=== PATIENT | male | born 1945 | race African-American/Black ===

== ENCOUNTER 2018-12-12 17:35 | Inpatient (IN) | payer MEDICARE, MEDICAID ==
[2018-12-12] VITALS (7 sets, daily range): BP systolic 99–164; BP diastolic 67–106
[~2018-12-12] VITALS: Ht 170.2 cm; Wt 85.7 kg
[2018-12-12] MEDS ORDERED: IPRATROPIUM BROMIDE (0.02%) 0.5MG/2.5ML NEB HHN STA (17:43)
[2018-12-12] MEDS ORDERED: ALBUTEROL (0.083%) 2.5MG/3ML NEB HHN STA (17:43)
[2018-12-12] MEDS ORDERED: METHYLPREDNISOLONE SOD SUCC 125 MG/2 ML VIAL IV STA (17:43)
[2018-12-12] MEDS ORDERED: MAGNESIUM 2 G PREMIX 50 ML IV ONE (17:45)
[2018-12-12] MEDS ORDERED: SODIUM CHLORIDE 0.9% 1,000 ML IV ONE (18:45)
[2018-12-12 18:51] LABS: BASOPHILS % 0.4 % (0.0-2.0); EOSINOPHILS % 0.1 % (0.0-5.0); HEMOGLOBIN. 15.3 g/dL (14.0-18.0); LYMPHOCYTES % 23.4 % (20.0-50.0); MEAN CORPUSCULAR HEMOGLOBIN 31.7 pg (28.0-32.0); MEAN CORPUSCULAR VOLUME 95.3 fL (80.0-94.0); MEAN PLATELET VOLUME 8.9 fl (7.4-10.4); NEUTROPHILS % 70.1 % (40.0-76.0); PLATELET 189 x1000/uL (130-400); RED BLOOD CELL COUNT 4.82 mill/uL (4.7-6.1); RED CELL DISTRIBUTION WIDTH 12.8 % (11.6-14.6)
[2018-12-12 18:56] LABS: CHLORIDE 97 mEq/L (98-107)
[2018-12-12] MEDS ORDERED: LORAZEPAM 2MG/ML CPJ IV ONE ×2 (19:00→19:30)
[2018-12-12] MEDS ORDERED: SUCCINYLCHOLINE CHLORIDE 200MG/10ML IV ONE (19:00)
[2018-12-12] MEDS ORDERED: ETOMIDATE 2MG/ML 10ML VIAL IV ONE (19:00)
[2018-12-12] MEDS ORDERED: KETAMINE HCL 50 MG/ML 10ML IV ONE (19:00)
[2018-12-12] MEDS ORDERED: MIDAZOLAM HCL 2 MG/2 ML VIAL IV ONE (19:15)
[2018-12-12] MEDS ORDERED: MIDAZOLAM HCL 50 MG in DEXTROSE 5% WATER 40 ML IV ONE ×2 (19:15→19:30)
[2018-12-12 20:02] LABS: BG BASE EXCESS -1.2 mmol/L (-2.0-2.0); BG CARBOXYHEMOGLOBIN 0.2 % (0.5-1.5); BG DEOXYHEMOGLOBIN 0.3 % (0.0-5.0); BG FRACTION INSPIRED OXYGEN 100; BG HCO3 ACT 29.4 mmol/L (22.0-26.0); BG METHEMOGLOBIN 0.6 % (0.0-1.5); BG OXYGEN SATURATION 99.7 % (92.0-98.5); BG OXYHEMOGLOBIN 98.9 % (94.0-97.0); BG PCO2 79.4 mmHg (35.0-45.0); BG PH 7.186 (7.350-7.450); BG PO2 538.6 mmHg (75.0-100.0); BG SAMPLE SITE RIGHT RADIAL; BG TIDAL VOLUME(mL) 500 mL; BG TOTAL HEMOGLOBIN 14.3 g/dL (12.0-18.0); BG VENT MODE VENT - A/C; BG VENT RATE 12 set
[2018-12-13] VITALS (49 sets, daily range): BP systolic 83–195; BP diastolic 57–141
[2018-12-13] MEDS ORDERED: LEVOFLOXACIN 500MG PREMIX 100 ML IV SCH (00:15)
[2018-12-13] MEDS ORDERED: IPRATROPIUM/ALBUTEROL 0.5-3(2.5)MG/3ML NEB INH PRN (00:15)
[2018-12-13] MEDS ORDERED: ACETAMINOPHEN 650MG SUPP PR PRN (00:15)
[2018-12-13] MEDS ORDERED: ONDANSETRON HCL 4MG/2ML INJ IV PRN (00:15)
[2018-12-13] MEDS: SODIUM CHLORIDE 0.9% 1,000 ML IV SCH ×2 (00:37→12:10)
[2018-12-13] MEDS: MIDAZOLAM HCL 50 MG in DEXTROSE 5% WATER 40 ML IV PRN ×2 (00:38→07:29)
[2018-12-13] MEDS ORDERED: MAGNESIUM 2 G PREMIX 50 ML IV NR (01:00)
[2018-12-13] MEDS ORDERED: POTASSIUM CHLORIDE INJ 40 MEQ in DEXT 5% WATER 250 ML IV NR (01:00)
[2018-12-13] MEDS: FENTANYL CITRATE/PF 500 MCG in SODIUM CHLORIDE 0.9% 40 ML IV PRN ×3 (02:12→17:04)
[2018-12-13] MEDS: LEVOFLOXACIN 500MG PREMIX 100 ML IV SCH (04:13)
[2018-12-13] MEDS: IPRATROPIUM/ALBUTEROL 0.5-3(2.5)MG/3ML NEB HHN SCH ×5 (04:43→20:12)
[2018-12-13 05:34] LABS: CHLORIDE 103 mEq/L (98-107)
[2018-12-13] MEDS ORDERED: METHYLPREDNISOLONE SOD SUCC 125 MG/2 ML VIAL IV SCH (06:00)
[2018-12-13 08:32] LABS: BG BASE EXCESS 0.4 mmol/L (-2.0-2.0); BG CARBOXYHEMOGLOBIN 0.6 % (0.5-1.5); BG DEOXYHEMOGLOBIN 1.2 % (0.0-5.0); BG FRACTION INSPIRED OXYGEN 40; BG HCO3 ACT 27.8 mmol/L (22.0-26.0); BG METHEMOGLOBIN 0.4 % (0.0-1.5); BG OXYGEN SATURATION 98.8 % (92.0-98.5); BG OXYHEMOGLOBIN 97.8 % (94.0-97.0); BG PCO2 56.2 mmHg (35.0-45.0); BG PH 7.312 (7.350-7.450); BG PO2 152.1 mmHg (75.0-100.0); BG SAMPLE SITE RIGHT RADIAL; BG TIDAL VOLUME(mL) 500 mL; BG TOTAL HEMOGLOBIN 14.3 g/dL (12.0-18.0); BG VENT MODE VENT - A/C; BG VENT RATE 14 set
[2018-12-13] MEDS: FAMOTIDINE 20MG/2ML VIAL IV SCH ×2 (09:19→21:06)
[2018-12-13] MEDS: ENOXAPARIN 40MG/0.4ML SYR SUBCUT SCH (09:19)
[2018-12-13] MEDS ORDERED: DEXTROSE 50% WATER 50ML SYRINGE IV PRN (10:30)
[2018-12-13] MEDS: INSULIN LISPRO 100 UNITS/ML SUBCUT SCH ×3 (11:00→23:55)
[2018-12-13] MEDS: LORAZEPAM 2MG/ML CPJ IV PRN (11:35)
[2018-12-13] MEDS: BLOOD SUGAR DIAGNOSTIC STRIP TEST SCH ×3 (11:48→23:53)
[2018-12-13] MEDS: PROPOFOL 10MG/ML 100ML 100 ML IV PRN ×3 (12:09→23:58)
[2018-12-13] MEDS: METHYLPREDNISOLONE SOD SUCC 40 MG/ML VIAL IV SCH ×2 (15:05→21:06)
[2018-12-14] VITALS (60 sets, daily range): BP systolic 77–151; BP diastolic 59–106
[2018-12-14] MEDS: IPRATROPIUM/ALBUTEROL 0.5-3(2.5)MG/3ML NEB HHN SCH ×6 (00:06→20:52)
[2018-12-14 01:09] LABS: CLARITY URINE TURBID (CLEAR); KETONES URINE 2+ (NEGATIVE); LEUKOCYTE ESTERASE URINE 3+ (NEGATIVE); NITRITE URINE POSITIVE (NEGATIVE); OCCULT BLOOD URINE 3+ (NEGATIVE); PROTEIN URINE 2+ (NEGATIVE); SPECIFIC GRAVITY URINE 1.026 (1.005-1.030)
[2018-12-14 01:21] LABS: COLOR URINE BLOODY (YELLOW)
[2018-12-14 01:45] LABS: *BARBITURATES SCREEN URINE NEGATIVE (NEGATIVE)
[2018-12-14 01:46] LABS: *AMPHETAMINES SCREEN URINE NEGATIVE (NEGATIVE); *BENZODIAZEPINES SCREEN URINE PRESUMTIVE POSITIVE (NEGATIVE); *COCAINE SCREEN URINE NEGATIVE (NEGATIVE); METHADONE URINE SCREEN NEGATIVE (NEGATIVE); OPIATES URINE SCREEN PRESUMTIVE POSITIVE (NEGATIVE); PHENCYCLIDINE URINE SCREEN NEGATIVE (NEGATIVE)
[2018-12-14 01:47] LABS: CANNABINOID URINE SCREEN PRESUMTIVE POSITIVE (NEGATIVE)
[2018-12-14] MEDS: FENTANYL CITRATE/PF 500 MCG in SODIUM CHLORIDE 0.9% 40 ML IV PRN ×2 (03:13→20:59)
[2018-12-14] MEDS: LEVOFLOXACIN 500MG PREMIX 100 ML IV SCH (04:48)
[2018-12-14] MEDS: SODIUM CHLORIDE 0.9% 1,000 ML IV SCH ×2 (04:53→17:46)
[2018-12-14] MEDS: INSULIN LISPRO 100 UNITS/ML SUBCUT SCH ×4 (05:00→23:00)
[2018-12-14 05:34] LABS: BASOPHILS % 0.2 % (0.0-2.0); HEMATOCRIT. 38.8 % (42.0-52.0); HEMOGLOBIN. 12.9 g/dL (14.0-18.0); LYMPHOCYTES % 8.2 % (20.0-50.0); MEAN CORPUSCULAR HEMOGLOBIN 31.9 pg (28.0-32.0); MEAN CORPUSCULAR VOLUME 96.1 fL (80.0-94.0); MEAN PLATELET VOLUME 9.2 fl (7.4-10.4); MONOCYTES % 5.7 % (2.0-8.0); NEUTROPHILS % 85.9 % (40.0-76.0); PLATELET 140 x1000/uL (130-400); RED BLOOD CELL COUNT 4.04 mill/uL (4.7-6.1); RED CELL DISTRIBUTION WIDTH 12.9 % (11.6-14.6)
[2018-12-14] MEDS: BLOOD SUGAR DIAGNOSTIC STRIP TEST SCH ×4 (05:36→23:00)
[2018-12-14] MEDS: METHYLPREDNISOLONE SOD SUCC 40 MG/ML VIAL IV SCH ×3 (05:47→21:36)
[2018-12-14 05:50] LABS: CHLORIDE 106 mEq/L (98-107)
[2018-12-14] MEDS: PROPOFOL 10MG/ML 100ML 100 ML IV PRN ×3 (06:00→17:42)
[2018-12-14 07:53] LABS: BG BASE EXCESS 0.9 mmol/L (-2.0-2.0); BG CARBOXYHEMOGLOBIN 0.5 % (0.5-1.5); BG DEOXYHEMOGLOBIN 3.8 % (0.0-5.0); BG FRACTION INSPIRED OXYGEN 30; BG HCO3 ACT 28.1 mmol/L (22.0-26.0); BG METHEMOGLOBIN 0.2 % (0.0-1.5); BG OXYGEN SATURATION 96.2 % (92.0-98.5); BG OXYHEMOGLOBIN 95.5 % (94.0-97.0); BG PCO2 56.5 mmHg (35.0-45.0); BG PH 7.315 (7.350-7.450); BG PO2 90.1 mmHg (75.0-100.0); BG SAMPLE SITE RIGHT RADIAL; BG TIDAL VOLUME(mL) 500 mL; BG TOTAL HEMOGLOBIN 13.3 g/dL (12.0-18.0); BG VENT MODE VENT - A/C; BG VENT RATE 14 set
[2018-12-14] MEDS: ENOXAPARIN 40MG/0.4ML SYR SUBCUT SCH (09:02)
[2018-12-14] MEDS: FAMOTIDINE 20MG/2ML VIAL IV SCH ×2 (09:03→21:36)
[2018-12-14] MEDS ORDERED: PNEUMOCOCCAL 23-VAL P-SAC VAC 0.5 ML IM ONE (16:30)
[2018-12-14] MEDS ORDERED: INFLUENZA VIRUS VACCINE(AFLURIA) 0.5ML SYR IM ONE (16:30)
[2018-12-14 21:44] LABS: BG BASE EXCESS 2.1 mmol/L (-2.0-2.0); BG CARBOXYHEMOGLOBIN 0.4 % (0.5-1.5); BG DEOXYHEMOGLOBIN 1.5 % (0.0-5.0); BG FRACTION INSPIRED OXYGEN 30; BG HCO3 ACT 27.6 mmol/L (22.0-26.0); BG METHEMOGLOBIN 0.2 % (0.0-1.5); BG OXYGEN SATURATION 98.5 % (92.0-98.5); BG OXYHEMOGLOBIN 97.9 % (94.0-97.0); BG PCO2 46.5 mmHg (35.0-45.0); BG PH 7.391 (7.350-7.450); BG PO2 133.4 mmHg (75.0-100.0); BG SAMPLE SITE RIGHT RADIAL; BG TIDAL VOLUME(mL) 500 mL; BG TOTAL HEMOGLOBIN 12.2 g/dL (12.0-18.0); BG VENT MODE VENT - A/C; BG VENT RATE 16 set
[2018-12-15] VITALS (49 sets, daily range): BP systolic 90–150; BP diastolic 51–93
[2018-12-15] MEDS: IPRATROPIUM/ALBUTEROL 0.5-3(2.5)MG/3ML NEB HHN SCH ×6 (00:19→20:10)
[2018-12-15] MEDS: PROPOFOL 10MG/ML 100ML 100 ML IV PRN ×6 (00:22→23:55)
[2018-12-15] MEDS: LEVOFLOXACIN 500MG PREMIX 100 ML IV SCH (04:28)
[2018-12-15] MEDS: BLOOD SUGAR DIAGNOSTIC STRIP TEST SCH ×4 (04:28→23:13)
[2018-12-15] MEDS: METHYLPREDNISOLONE SOD SUCC 40 MG/ML VIAL IV SCH ×3 (05:21→21:09)
[2018-12-15] MEDS: INSULIN LISPRO 100 UNITS/ML SUBCUT SCH ×4 (05:22→23:00)
[2018-12-15] MEDS: FENTANYL CITRATE/PF 500 MCG in SODIUM CHLORIDE 0.9% 40 ML IV PRN ×2 (05:27→20:10)
[2018-12-15 07:01] LABS: BG BASE EXCESS 4.3 mmol/L (-2.0-2.0); BG DEOXYHEMOGLOBIN 3.4 % (0.0-5.0); BG HCO3 ACT 30.7 mmol/L (22.0-26.0); BG OXYGEN SATURATION 96.6 % (92.0-98.5); BG OXYHEMOGLOBIN 95.6 % (94.0-97.0); BG PCO2 53.3 mmHg (35.0-45.0); BG PH 7.378 (7.350-7.450); BG SAMPLE SITE RIGHT RADIAL; BG TIDAL VOLUME(mL) 500 mL; BG TOTAL HEMOGLOBIN 13.4 g/dL (12.0-18.0); BG VENT MODE VENT - A/C; BG VENT RATE 16 set
[2018-12-15] MEDS: ENOXAPARIN 40MG/0.4ML SYR SUBCUT SCH (08:37)
[2018-12-15] MEDS: FAMOTIDINE 20MG/2ML VIAL IV SCH ×2 (08:37→20:21)
[2018-12-15] MEDS: SODIUM CHLORIDE 0.9% 1,000 ML IV SCH ×2 (09:49→20:11)
[2018-12-15] MEDS: THEOPHYLLINE ANHYDROUS 80 MG/15 ML 120ML PO SCH ×2 (14:36→21:09)
[2018-12-15] MEDS: LORAZEPAM 2MG/ML CPJ IV PRN (17:35)
[2018-12-15 18:09] LABS: BG BASE EXCESS 3.5 mmol/L (-2.0-2.0); BG DEOXYHEMOGLOBIN 4.1 % (0.0-5.0); BG METHEMOGLOBIN 0.2 % (0.0-1.5); BG OXYGEN SATURATION 95.9 % (92.0-98.5); BG OXYHEMOGLOBIN 95.7 % (94.0-97.0); BG PCO2 47.4 mmHg (35.0-45.0); BG PH 7.404 (7.350-7.450); BG PO2 85.4 mmHg (75.0-100.0); BG SAMPLE SITE RIGHT BRACHIAL; BG TIDAL VOLUME(mL) 550 mL; BG TOTAL HEMOGLOBIN 12.7 g/dL (12.0-18.0); BG VENT MODE VENT - A/C; BG VENT RATE 16 set
[2018-12-16] VITALS (52 sets, daily range): BP systolic 101–209; BP diastolic 70–124
[2018-12-16] MEDS: IPRATROPIUM/ALBUTEROL 0.5-3(2.5)MG/3ML NEB HHN SCH ×7 (00:18→20:19)
[2018-12-16] MEDS: LEVOFLOXACIN 500MG PREMIX 100 ML IV SCH (03:16)
[2018-12-16] MEDS: METHYLPREDNISOLONE SOD SUCC 40 MG/ML VIAL IV SCH ×3 (05:07→21:19)
[2018-12-16] MEDS: PROPOFOL 10MG/ML 100ML 100 ML IV PRN ×4 (05:08→19:37)
[2018-12-16] MEDS: BLOOD SUGAR DIAGNOSTIC STRIP TEST SCH ×4 (05:20→23:23)
[2018-12-16] MEDS: THEOPHYLLINE ANHYDROUS 80 MG/15 ML 120ML PO SCH ×3 (05:20→21:19)
[2018-12-16] MEDS: INSULIN LISPRO 100 UNITS/ML SUBCUT SCH ×4 (05:25→23:27)
[2018-12-16 05:48] LABS: BASOPHILS % 0.1 % (0.0-2.0); HEMATOCRIT. 34.9 % (42.0-52.0); HEMOGLOBIN. 11.4 g/dL (14.0-18.0); LYMPHOCYTES % 18.1 % (20.0-50.0); MEAN CORPUSCULAR HEMOGLOBIN 31.8 pg (28.0-32.0); MEAN PLATELET VOLUME 9.1 fl (7.4-10.4); NEUTROPHILS % 70.8 % (40.0-76.0); PLATELET 153 x1000/uL (130-400); RED BLOOD CELL COUNT 3.59 mill/uL (4.7-6.1)
[2018-12-16 06:04] LABS: CHLORIDE 111 mEq/L (98-107)
[2018-12-16] MEDS: FAMOTIDINE 20MG/2ML VIAL IV SCH ×2 (08:19→20:55)
[2018-12-16] MEDS: ENOXAPARIN 40MG/0.4ML SYR SUBCUT SCH (08:19)
[2018-12-16] MEDS: SODIUM CHLORIDE 0.9% 1,000 ML IV SCH ×2 (08:20→20:56)
[2018-12-16] MEDS: FENTANYL CITRATE/PF 500 MCG in SODIUM CHLORIDE 0.9% 40 ML IV PRN ×2 (08:23→19:39)
[2018-12-16 08:31] LABS: BG BASE EXCESS 4.8 mmol/L (-2.0-2.0); BG CARBOXYHEMOGLOBIN 0.2 % (0.5-1.5); BG DEOXYHEMOGLOBIN 2.3 % (0.0-5.0); BG FRACTION INSPIRED OXYGEN 30; BG HCO3 ACT 29.9 mmol/L (22.0-26.0); BG METHEMOGLOBIN 0.3 % (0.0-1.5); BG OXYGEN SATURATION 97.7 % (92.0-98.5); BG OXYHEMOGLOBIN 97.2 % (94.0-97.0); BG PCO2 46.3 mmHg (35.0-45.0); BG PH 7.428 (7.350-7.450); BG PO2 102.1 mmHg (75.0-100.0); BG SAMPLE SITE RIGHT RADIAL; BG TIDAL VOLUME(mL) 550 mL; BG TOTAL HEMOGLOBIN 12.1 g/dL (12.0-18.0); BG VENT MODE VENT - A/C; BG VENT RATE 16 set
[2018-12-16] MEDS: LORAZEPAM 2MG/ML CPJ IV PRN (19:33)
[2018-12-17] VITALS (52 sets, daily range): BP systolic 91–193; BP diastolic 67–128
[2018-12-17] MEDS: IPRATROPIUM/ALBUTEROL 0.5-3(2.5)MG/3ML NEB HHN SCH ×6 (00:13→20:11)
[2018-12-17] MEDS: PROPOFOL 10MG/ML 100ML 100 ML IV PRN ×4 (01:24→19:40)
[2018-12-17] MEDS: LEVOFLOXACIN 500MG PREMIX 100 ML IV SCH (03:49)
[2018-12-17] MEDS: THEOPHYLLINE ANHYDROUS 80 MG/15 ML 120ML PO SCH ×3 (05:16→21:15)
[2018-12-17] MEDS: METHYLPREDNISOLONE SOD SUCC 40 MG/ML VIAL IV SCH ×3 (05:16→21:15)
[2018-12-17] MEDS: INSULIN LISPRO 100 UNITS/ML SUBCUT SCH ×4 (05:26→23:00)
[2018-12-17] MEDS: BLOOD SUGAR DIAGNOSTIC STRIP TEST SCH ×4 (05:27→23:29)
[2018-12-17 05:54] LABS: HEMATOCRIT. 38.9 % (42.0-52.0); HEMOGLOBIN. 12.8 g/dL (14.0-18.0); MEAN CORPUSCULAR HEMOGLOBIN 31.6 pg (28.0-32.0); MEAN CORPUSCULAR VOLUME 96.1 fL (80.0-94.0); RED BLOOD CELL COUNT 4.05 mill/uL (4.7-6.1)
[2018-12-17 07:20] LABS: BG BASE EXCESS 6.1 mmol/L (-2.0-2.0); BG CARBOXYHEMOGLOBIN 0.3 % (0.5-1.5); BG DEOXYHEMOGLOBIN 2.4 % (0.0-5.0); BG HCO3 ACT 31.5 mmol/L (22.0-26.0); BG METHEMOGLOBIN 0.3 % (0.0-1.5); BG OXYGEN SATURATION 97.6 % (92.0-98.5); BG PCO2 48.6 mmHg (35.0-45.0); BG PH 7.429 (7.350-7.450); BG PO2 103.9 mmHg (75.0-100.0); BG SAMPLE SITE RIGHT RADIAL; BG TIDAL VOLUME(mL) 550 mL; BG TOTAL HEMOGLOBIN 12.7 g/dL (12.0-18.0); BG VENT MODE VENT - A/C; BG VENT RATE 16 set
[2018-12-17 07:42] LABS: CHLORIDE 110 mEq/L (98-107)
[2018-12-17 08:57] LABS: MEAN PLATELET VOLUME 8.7 fl (7.4-10.4); PLATELET 180 x1000/uL (130-400); PLATELET ESTIMATE NORMAL
[2018-12-17] MEDS: FAMOTIDINE 20MG/2ML VIAL IV SCH ×2 (09:12→21:14)
[2018-12-17] MEDS: ENOXAPARIN 40MG/0.4ML SYR SUBCUT SCH (09:12)
[2018-12-17] MEDS: SODIUM CHLORIDE 0.9% 1,000 ML IV SCH ×2 (10:11→23:29)
[2018-12-17] MEDS: LORAZEPAM 2MG/ML CPJ IV PRN (13:15)
[2018-12-17] MEDS: FENTANYL CITRATE/PF 500 MCG in SODIUM CHLORIDE 0.9% 40 ML IV PRN ×2 (13:55→21:39)
[2018-12-17] MEDS: HYDRALAZINE 20MG/ML VIAL IV PRN (15:51)
[2018-12-18] VITALS (59 sets, daily range): BP systolic 69–191; BP diastolic 38–117
[2018-12-18] MEDS: IPRATROPIUM/ALBUTEROL 0.5-3(2.5)MG/3ML NEB HHN SCH ×6 (00:42→19:59)
[2018-12-18] MEDS: PROPOFOL 10MG/ML 100ML 100 ML IV PRN ×4 (01:01→21:06)
[2018-12-18] MEDS: LEVOFLOXACIN 500MG PREMIX 100 ML IV SCH (03:17)
[2018-12-18] MEDS: INSULIN LISPRO 100 UNITS/ML SUBCUT SCH ×4 (05:00→23:00)
[2018-12-18] MEDS: METHYLPREDNISOLONE SOD SUCC 40 MG/ML VIAL IV SCH ×2 (05:19→21:36)
[2018-12-18] MEDS: THEOPHYLLINE ANHYDROUS 80 MG/15 ML 120ML PO SCH ×2 (05:19→16:23)
[2018-12-18] MEDS: BLOOD SUGAR DIAGNOSTIC STRIP TEST SCH ×4 (05:19→23:00)
[2018-12-18] MEDS: FAMOTIDINE 20MG/2ML VIAL IV SCH ×2 (09:06→21:36)
[2018-12-18] MEDS: ENOXAPARIN 40MG/0.4ML SYR SUBCUT SCH (09:06)
[2018-12-18] MEDS: SODIUM CHLORIDE 0.9% 1,000 ML IV SCH (13:32)
[2018-12-18] MEDS: FENTANYL CITRATE/PF 500 MCG in SODIUM CHLORIDE 0.9% 40 ML IV PRN ×2 (14:50→21:59)
[2018-12-18] MEDS: HYDRALAZINE 20MG/ML VIAL IV PRN (18:33)
[2018-12-18] MEDS: DIPHENHYDRAMINE 50MG/ML VIAL IV PRN (18:34)
[2018-12-18 20:45] LABS: BG BASE EXCESS 8.3 mmol/L (-2.0-2.0); BG CARBOXYHEMOGLOBIN 0.3 % (0.5-1.5); BG DEOXYHEMOGLOBIN 6.8 % (0.0-5.0); BG FRACTION INSPIRED OXYGEN 30; BG HCO3 ACT 34.7 mmol/L (22.0-26.0); BG METHEMOGLOBIN 0.3 % (0.0-1.5); BG OXYGEN SATURATION 93.2 % (92.0-98.5); BG OXYHEMOGLOBIN 92.6 % (94.0-97.0); BG PCO2 54.2 mmHg (35.0-45.0); BG PH 7.424 (7.350-7.450); BG PIP 15 cmH2O; BG PO2 68.6 mmHg (75.0-100.0); BG SAMPLE SITE RIGHT BRACHIAL; BG TIDAL VOLUME(mL) 550 mL; BG TOTAL HEMOGLOBIN 15.7 g/dL (12.0-18.0); BG VENT MODE VENT - A/C; BG VENT RATE 16 set
[2018-12-19] VITALS (96 sets, daily range): BP systolic 78–234; BP diastolic 46–134
[2018-12-19] MEDS: IPRATROPIUM/ALBUTEROL 0.5-3(2.5)MG/3ML NEB HHN SCH ×6 (00:01→20:37)
[2018-12-19] MEDS: PROPOFOL 10MG/ML 100ML 100 ML IV PRN ×3 (03:39→21:24)
[2018-12-19] MEDS: LEVOFLOXACIN 500MG PREMIX 100 ML IV SCH (04:47)
[2018-12-19] MEDS: SODIUM CHLORIDE 0.9% 1,000 ML IV SCH ×2 (04:47→18:25)
[2018-12-19] MEDS: INSULIN LISPRO 100 UNITS/ML SUBCUT SCH ×4 (04:51→23:00)
[2018-12-19] MEDS: BLOOD SUGAR DIAGNOSTIC STRIP TEST SCH ×4 (05:00→23:00)
[2018-12-19] MEDS: FENTANYL CITRATE/PF 500 MCG in SODIUM CHLORIDE 0.9% 40 ML IV PRN ×2 (05:55→21:25)
[2018-12-19 08:05] LABS: BG BASE EXCESS 5.2 mmol/L (-2.0-2.0); BG CARBOXYHEMOGLOBIN 0.6 % (0.5-1.5); BG DEOXYHEMOGLOBIN 2.7 % (0.0-5.0); BG FRACTION INSPIRED OXYGEN 30; BG HCO3 ACT 30.2 mmol/L (22.0-26.0); BG METHEMOGLOBIN 0.4 % (0.0-1.5); BG OXYGEN SATURATION 97.3 % (92.0-98.5); BG OXYHEMOGLOBIN 96.3 % (94.0-97.0); BG PCO2 45.9 mmHg (35.0-45.0); BG PH 7.436 (7.350-7.450); BG PO2 95.4 mmHg (75.0-100.0); BG SAMPLE SITE LEFT RADIAL; BG TIDAL VOLUME(mL) 550 mL; BG VENT MODE VENT - A/C; BG VENT RATE 16 set
[2018-12-19] MEDS: ENOXAPARIN 40MG/0.4ML SYR SUBCUT SCH (08:48)
[2018-12-19] MEDS: METHYLPREDNISOLONE SOD SUCC 40 MG/ML VIAL IV SCH ×2 (08:48→21:07)
[2018-12-19] MEDS: FAMOTIDINE 20MG/2ML VIAL IV SCH ×2 (08:48→21:07)
[2018-12-19] MEDS ORDERED: QUETIAPINE FUMARATE 25MG TABLET PO SCH (09:00)
[2018-12-19] MEDS: LORAZEPAM 2MG/ML CPJ IV PRN ×2 (11:19→23:30)
[2018-12-19 13:35] LABS: BG BASE EXCESS 6.1 mmol/L (-2.0-2.0); BG CARBOXYHEMOGLOBIN 0.2 % (0.5-1.5); BG DEOXYHEMOGLOBIN 4.1 % (0.0-5.0); BG FRACTION INSPIRED OXYGEN 30; BG HCO3 ACT 31.5 mmol/L (22.0-26.0); BG METHEMOGLOBIN 0.2 % (0.0-1.5); BG OXYGEN SATURATION 95.9 % (92.0-98.5); BG OXYHEMOGLOBIN 95.5 % (94.0-97.0); BG PCO2 48.7 mmHg (35.0-45.0); BG PH 7.429 (7.350-7.450); BG PO2 84.1 mmHg (75.0-100.0); BG SAMPLE SITE LEFT RADIAL; BG TIDAL VOLUME(mL) 550 mL; BG TOTAL HEMOGLOBIN 12.9 g/dL (12.0-18.0); BG VENT MODE VENT - A/C; BG VENT RATE 16 set
[2018-12-19] MEDS: HYDRALAZINE 20MG/ML VIAL IV PRN (13:47)
[2018-12-19 17:43] LABS: INR 1.1; PROTHROMBIN TIME 11.3 sec (9.1-11.1)
[2018-12-19] MEDS ORDERED: PROPOFOL 10MG/ML 100ML 100 ML IV PRN (18:15)
[2018-12-20] VITALS (84 sets, daily range): BP systolic 73–204; BP diastolic 41–141
[2018-12-20] MEDS: IPRATROPIUM/ALBUTEROL 0.5-3(2.5)MG/3ML NEB HHN SCH ×3 (00:31→08:13)
[2018-12-20] MEDS: FENTANYL CITRATE/PF 500 MCG in SODIUM CHLORIDE 0.9% 40 ML IV PRN ×3 (02:06→21:55)
[2018-12-20] MEDS: PROPOFOL 10MG/ML 100ML 100 ML IV PRN ×4 (02:06→20:01)
[2018-12-20] MEDS: LORAZEPAM 2MG/ML CPJ IV PRN ×2 (03:11→10:56)
[2018-12-20] MEDS: LEVOFLOXACIN 500MG PREMIX 100 ML IV SCH (03:11)
[2018-12-20] MEDS: BLOOD SUGAR DIAGNOSTIC STRIP TEST SCH ×4 (05:00→23:00)
[2018-12-20 06:05] LABS: CHLORIDE 109 mEq/L (98-107)
[2018-12-20 07:27] LABS: BG BASE EXCESS 3.4 mmol/L (-2.0-2.0); BG CARBOXYHEMOGLOBIN 0.7 % (0.5-1.5); BG DEOXYHEMOGLOBIN 5.3 % (0.0-5.0); BG HCO3 ACT 28.3 mmol/L (22.0-26.0); BG METHEMOGLOBIN 0.5 % (0.0-1.5); BG OXYGEN SATURATION 94.6 % (92.0-98.5); BG OXYHEMOGLOBIN 93.5 % (94.0-97.0); BG PCO2 44.1 mmHg (35.0-45.0); BG PH 7.425 (7.350-7.450); BG PO2 75.9 mmHg (75.0-100.0); BG SAMPLE SITE RIGHT RADIAL; BG TIDAL VOLUME(mL) 550 mL; BG TOTAL HEMOGLOBIN 12.9 g/dL (12.0-18.0); BG VENT MODE VENT - A/C; BG VENT RATE 16 set
[2018-12-20] MEDS: SODIUM CHLORIDE 0.9% 1,000 ML IV SCH (07:53)
[2018-12-20] MEDS: INSULIN LISPRO 100 UNITS/ML SUBCUT SCH ×4 (08:02→23:00)
[2018-12-20] MEDS: HYDRALAZINE 20MG/ML VIAL IV PRN ×2 (10:40→18:46)
[2018-12-20] MEDS: FAMOTIDINE 20MG/2ML VIAL IV SCH ×2 (10:41→21:32)
[2018-12-20] MEDS: RISPERIDONE 1MG TABLET PO SCH ×2 (10:41→21:32)
[2018-12-20 13:19] LABS: BASOPHILS % 0.2 % (0.0-2.0); HEMATOCRIT. 42.8 % (42.0-52.0); LYMPHOCYTES % 11.3 % (20.0-50.0); MEAN CORPUSCULAR HEMOGLOBIN 31.1 pg (28.0-32.0); MEAN CORPUSCULAR VOLUME 95.7 fL (80.0-94.0); MEAN PLATELET VOLUME 8.6 fl (7.4-10.4); MONOCYTES % 9.4 % (2.0-8.0); NEUTROPHILS % 79.1 % (40.0-76.0); PLATELET 258 x1000/uL (130-400); RED BLOOD CELL COUNT 4.48 mill/uL (4.7-6.1); RED CELL DISTRIBUTION WIDTH 13.2 % (11.6-14.6)
[2018-12-20 13:24] LABS: HEMOGLOBIN. 13.9 g/dL (14.0-18.0)
[2018-12-20] MEDS: IPRATROPIUM BROMIDE (0.02%) 0.5MG/2.5ML NEB HHN SCH ×2 (14:00→19:58)
[2018-12-20] MEDS ORDERED: IOHEXOL-350 100 ML BOTTLE ONE (14:29)
[2018-12-20] MEDS: METOPROLOL TARTRATE 25MG TABLET PO SCH ×2 (15:09→21:32)
[2018-12-21] VITALS (83 sets, daily range): BP systolic 54–182; BP diastolic 37–98
[2018-12-21] MEDS: PROPOFOL 10MG/ML 100ML 100 ML IV PRN ×5 (00:16→21:39)
[2018-12-21] MEDS: IPRATROPIUM BROMIDE (0.02%) 0.5MG/2.5ML NEB HHN SCH ×4 (01:57→20:11)
[2018-12-21] MEDS: FENTANYL CITRATE/PF 500 MCG in SODIUM CHLORIDE 0.9% 40 ML IV PRN ×2 (02:05→17:44)
[2018-12-21] MEDS: INSULIN LISPRO 100 UNITS/ML SUBCUT SCH ×4 (05:00→23:00)
[2018-12-21] MEDS: BLOOD SUGAR DIAGNOSTIC STRIP TEST SCH ×4 (05:21→23:32)
[2018-12-21] MEDS: FAMOTIDINE 20MG/2ML VIAL IV SCH ×2 (08:35→21:15)
[2018-12-21] MEDS: RISPERIDONE 1MG TABLET PO SCH ×2 (08:35→21:16)
[2018-12-21] MEDS: PREDNISONE 20MG TABLET PO SCH (08:35)
[2018-12-21] MEDS: SODIUM CHLORIDE 0.9% 1,000 ML IV SCH ×2 (08:46→23:35)
[2018-12-21] MEDS: METOPROLOL TARTRATE 25MG TABLET PO SCH ×2 (08:46→21:16)
[2018-12-21] MEDS ORDERED: LORAZEPAM 2MG/ML CPJ IV NR (09:00)
[2018-12-21 12:28] LABS: BG BASE EXCESS 2.1 mmol/L (-2.0-2.0); BG CARBOXYHEMOGLOBIN 0.5 % (0.5-1.5); BG DEOXYHEMOGLOBIN 4.4 % (0.0-5.0); BG FRACTION INSPIRED OXYGEN 30; BG METHEMOGLOBIN 0.4 % (0.0-1.5); BG OXYGEN SATURATION 95.6 % (92.0-98.5); BG OXYHEMOGLOBIN 94.7 % (94.0-97.0); BG PCO2 38.6 mmHg (35.0-45.0); BG PH 7.447 (7.350-7.450); BG PO2 79.5 mmHg (75.0-100.0); BG SAMPLE SITE RIGHT RADIAL; BG TIDAL VOLUME(mL) 550 mL; BG TOTAL HEMOGLOBIN 14.5 g/dL (12.0-18.0); BG VENT MODE VENT - A/C; BG VENT RATE 16 set
[2018-12-22] VITALS (105 sets, daily range): BP systolic 83–168; BP diastolic 54–96
[2018-12-22] MEDS: IPRATROPIUM BROMIDE (0.02%) 0.5MG/2.5ML NEB HHN SCH ×4 (01:41→20:31)
[2018-12-22] MEDS: PROPOFOL 10MG/ML 100ML 100 ML IV PRN ×5 (01:48→23:02)
[2018-12-22] MEDS: INSULIN LISPRO 100 UNITS/ML SUBCUT SCH ×4 (05:00→23:00)
[2018-12-22] MEDS: BLOOD SUGAR DIAGNOSTIC STRIP TEST SCH ×4 (05:00→23:47)
[2018-12-22 07:45] LABS: EOSINOPHILS % 0.5 % (0.0-5.0); HEMATOCRIT. 38.7 % (42.0-52.0); HEMOGLOBIN. 12.5 g/dL (14.0-18.0); LYMPHOCYTES % 12.9 % (20.0-50.0); MEAN CORPUSCULAR VOLUME 95.8 fL (80.0-94.0); MEAN PLATELET VOLUME 9.1 fl (7.4-10.4); MONOCYTES % 9.2 % (2.0-8.0); NEUTROPHILS % 76.4 % (40.0-76.0); PLATELET 231 x1000/uL (130-400); RED BLOOD CELL COUNT 4.04 mill/uL (4.7-6.1); RED CELL DISTRIBUTION WIDTH 13.3 % (11.6-14.6)
[2018-12-22 07:56] LABS: CHLORIDE 110 mEq/L (98-107)
[2018-12-22] MEDS: PREDNISONE 20MG TABLET PO SCH (08:24)
[2018-12-22] MEDS: RISPERIDONE 1MG TABLET PO SCH ×2 (08:24→21:51)
[2018-12-22] MEDS: FAMOTIDINE 20MG/2ML VIAL IV SCH ×2 (08:25→21:51)
[2018-12-22] MEDS: METOPROLOL TARTRATE 25MG TABLET PO SCH ×2 (08:25→21:52)
[2018-12-22 08:57] LABS: BG BASE EXCESS 4.1 mmol/L (-2.0-2.0); BG CARBOXYHEMOGLOBIN 0.6 % (0.5-1.5); BG DEOXYHEMOGLOBIN 2.7 % (0.0-5.0); BG FRACTION INSPIRED OXYGEN 30; BG HCO3 ACT 28.2 mmol/L (22.0-26.0); BG METHEMOGLOBIN 0.3 % (0.0-1.5); BG OXYGEN SATURATION 97.3 % (92.0-98.5); BG OXYHEMOGLOBIN 96.4 % (94.0-97.0); BG PCO2 40.7 mmHg (35.0-45.0); BG PH 7.459 (7.350-7.450); BG PO2 95.5 mmHg (75.0-100.0); BG SAMPLE SITE RIGHT RADIAL; BG TIDAL VOLUME(mL) 550 mL; BG TOTAL HEMOGLOBIN 12.5 g/dL (12.0-18.0); BG VENT MODE VENT - A/C; BG VENT RATE 16 set
[2018-12-22] MEDS: FENTANYL CITRATE/PF 500 MCG in SODIUM CHLORIDE 0.9% 40 ML IV PRN (10:53)
[2018-12-22] MEDS: SODIUM CHLORIDE 0.9% 1,000 ML IV SCH (10:58)
[2018-12-22] MEDS ORDERED: MAGNESIUM HYDROXIDE 400MG/5ML 30ML UDC NG PRN (13:00)
[2018-12-22] MEDS ORDERED: CEFAZOLIN 1000MG PREMIX 50 ML IV PRN (18:15)
[2018-12-23] VITALS (69 sets, daily range): BP systolic 82–186; BP diastolic 49–112
[2018-12-23] MEDS: SODIUM CHLORIDE 0.9% 1,000 ML IV SCH (00:26)
[2018-12-23] MEDS: FENTANYL CITRATE/PF 500 MCG in SODIUM CHLORIDE 0.9% 40 ML IV PRN (00:26)
[2018-12-23] MEDS: IPRATROPIUM BROMIDE (0.02%) 0.5MG/2.5ML NEB HHN SCH ×4 (01:51→20:16)
[2018-12-23] MEDS: PROPOFOL 10MG/ML 100ML 100 ML IV PRN ×2 (03:23→08:16)
[2018-12-23] MEDS: INSULIN LISPRO 100 UNITS/ML SUBCUT SCH ×4 (05:00→23:00)
[2018-12-23 05:32] LABS: CHLORIDE 110 mEq/L (98-107)
[2018-12-23 05:34] LABS: BASOPHILS % 0.2 % (0.0-2.0); EOSINOPHILS % 0.7 % (0.0-5.0); HEMATOCRIT. 33.7 % (42.0-52.0); HEMOGLOBIN. 11.1 g/dL (14.0-18.0); MEAN CORPUSCULAR HEMOGLOBIN 31.7 pg (28.0-32.0); MEAN CORPUSCULAR VOLUME 96.2 fL (80.0-94.0); MEAN PLATELET VOLUME 8.9 fl (7.4-10.4); MONOCYTES % 7.9 % (2.0-8.0); NEUTROPHILS % 74.2 % (40.0-76.0); PLATELET 195 x1000/uL (130-400); RED CELL DISTRIBUTION WIDTH 12.9 % (11.6-14.6)
[2018-12-23] MEDS: BLOOD SUGAR DIAGNOSTIC STRIP TEST SCH ×4 (05:34→23:10)
[2018-12-23] MEDS: HYDRALAZINE 20MG/ML VIAL IV PRN ×2 (06:22→13:28)
[2018-12-23 07:30] LABS: BG BASE EXCESS 5.3 mmol/L (-2.0-2.0); BG CARBOXYHEMOGLOBIN 0.6 % (0.5-1.5); BG DEOXYHEMOGLOBIN 4.7 % (0.0-5.0); BG FRACTION INSPIRED OXYGEN 30; BG HCO3 ACT 30.4 mmol/L (22.0-26.0); BG METHEMOGLOBIN 0.3 % (0.0-1.5); BG OXYGEN SATURATION 95.3 % (92.0-98.5); BG OXYHEMOGLOBIN 94.4 % (94.0-97.0); BG PCO2 46.2 mmHg (35.0-45.0); BG PH 7.436 (7.350-7.450); BG PO2 77.2 mmHg (75.0-100.0); BG SAMPLE SITE RIGHT RADIAL; BG TIDAL VOLUME(mL) 550 mL; BG TOTAL HEMOGLOBIN 13.9 g/dL (12.0-18.0); BG VENT MODE VENT - A/C; BG VENT RATE 12 set
[2018-12-23] MEDS: PANTOPRAZOLE SODIUM 40 MG/VIAL IV SCH (08:49)
[2018-12-23] MEDS ORDERED: CEFAZOLIN SODIUM 1000MG/VIAL IM ONE (10:00)
[2018-12-23] MEDS ORDERED: FENTANYL CITRATE/PF 50MCG/ML 2ML VIAL ONE (10:07)
[2018-12-23] MEDS ORDERED: DIPHENHYDRAMINE 50MG/ML VIAL ONE (10:07)
[2018-12-23] MEDS ORDERED: MIDAZOLAM HCL 5 MG/5 ML VIAL ONE (10:07)
[2018-12-23] MEDS ORDERED: MIDAZOLAM HCL 5 MG/5 ML VIAL IV PRN (10:41)
[2018-12-23] MEDS: METOPROLOL TARTRATE 25MG TABLET PO SCH (11:15)
[2018-12-23] MEDS: RISPERIDONE 1MG TABLET PO SCH ×2 (11:15→20:31)
[2018-12-23] MEDS: LORAZEPAM 2MG/ML CPJ IV PRN ×3 (11:49→20:14)
[2018-12-23] MEDS: DEXT 5%/0.45% NACL 1000ML 1,000 ML IV SCH ×2 (11:59→22:07)
[2018-12-23] MEDS: MORPHINE SULFATE 4 MG/ML CPJ (NOT FOR IM USE) IV PRN ×2 (13:56→19:45)
[2018-12-23] MEDS: DIPHENHYDRAMINE 50MG/ML VIAL IV PRN ×2 (14:16→20:15)
[2018-12-23] MEDS: DILTIAZEM HCL 60MG TABLET PEG SCH ×2 (14:49→22:06)
[2018-12-23] MEDS ORDERED: BACTERIOSTATIC SODIUM CHLORIDE 0.9% 30ML VIAL IJ ONE (15:38)
[2018-12-23] MEDS: METOPROLOL TARTRATE 25MG TABLET PEG SCH (20:32)
[2018-12-23] MEDS: LISINOPRIL 10MG TABLET PEG SCH (20:32)
[2018-12-24] VITALS (47 sets, daily range): BP systolic 91–165; BP diastolic 53–92
[2018-12-24] MEDS: METOCLOPRAMIDE HCL 10MG/2ML VIAL IV SCH ×5 (00:13→23:45)
[2018-12-24] MEDS: DIPHENHYDRAMINE 50MG/ML VIAL IV PRN ×2 (00:29→03:43)
[2018-12-24] MEDS: LORAZEPAM 2MG/ML CPJ IV PRN ×4 (00:29→18:05)
[2018-12-24] MEDS: MORPHINE SULFATE 4 MG/ML CPJ (NOT FOR IM USE) IV PRN ×2 (00:30→14:43)
[2018-12-24] MEDS: IPRATROPIUM BROMIDE (0.02%) 0.5MG/2.5ML NEB HHN SCH ×4 (02:52→20:38)
[2018-12-24] MEDS: INSULIN LISPRO 100 UNITS/ML SUBCUT SCH ×4 (05:00→23:00)
[2018-12-24 05:01] LABS: BASOPHILS % 0.2 % (0.0-2.0); EOSINOPHILS % 0.1 % (0.0-5.0); HEMATOCRIT. 37.3 % (42.0-52.0); HEMOGLOBIN. 12.3 g/dL (14.0-18.0); LYMPHOCYTES % 10.4 % (20.0-50.0); MEAN CORPUSCULAR HEMOGLOBIN 31.4 pg (28.0-32.0); MEAN CORPUSCULAR VOLUME 95.2 fL (80.0-94.0); MEAN PLATELET VOLUME 8.8 fl (7.4-10.4); MONOCYTES % 7.4 % (2.0-8.0); NEUTROPHILS % 81.9 % (40.0-76.0); PLATELET 220 x1000/uL (130-400); RED BLOOD CELL COUNT 3.92 mill/uL (4.7-6.1); RED CELL DISTRIBUTION WIDTH 13.1 % (11.6-14.6)
[2018-12-24 05:11] LABS: CHLORIDE 105 mEq/L (98-107)
[2018-12-24] MEDS: BLOOD SUGAR DIAGNOSTIC STRIP TEST SCH ×4 (05:47→23:44)
[2018-12-24] MEDS: DILTIAZEM HCL 60MG TABLET PEG SCH ×3 (06:13→22:55)
[2018-12-24] MEDS: RISPERIDONE 1MG TABLET PO SCH ×2 (08:09→20:02)
[2018-12-24] MEDS: PANTOPRAZOLE SODIUM 40 MG/VIAL IV SCH (08:09)
[2018-12-24] MEDS: DEXT 5%/0.45% NACL 1000ML 1,000 ML IV SCH ×2 (08:09→18:30)
[2018-12-24] MEDS: PREDNISONE 20MG TABLET PO SCH (08:09)
[2018-12-24] MEDS: METOPROLOL TARTRATE 25MG TABLET PEG SCH ×2 (08:12→20:03)
[2018-12-24] MEDS: LISINOPRIL 10MG TABLET PEG SCH ×2 (10:44→20:03)
[2018-12-24] MEDS: PIPERACILLIN/TAZ 3.375G PREMIX 50 ML IV SCH ×3 (11:39→23:45)
[2018-12-24] MEDS: ACETYLCYSTEINE 100MG/ML 10% VIAL 4ML INH SCH (13:54)
[2018-12-25] VITALS (51 sets, daily range): BP systolic 82–154; BP diastolic 49–92
[2018-12-25] MEDS: IPRATROPIUM BROMIDE (0.02%) 0.5MG/2.5ML NEB HHN SCH ×4 (00:21→20:09)
[2018-12-25] MEDS: ACETYLCYSTEINE 100MG/ML 10% VIAL 4ML INH SCH ×3 (00:26→08:50)
[2018-12-25] MEDS: LORAZEPAM 2MG/ML CPJ IV PRN ×3 (00:58→19:58)
[2018-12-25] MEDS: DEXT 5%/0.45% NACL 1000ML 1,000 ML IV SCH ×3 (04:17→23:31)
[2018-12-25] MEDS: BLOOD SUGAR DIAGNOSTIC STRIP TEST SCH ×4 (04:20→23:21)
[2018-12-25] MEDS: INSULIN LISPRO 100 UNITS/ML SUBCUT SCH ×4 (06:33→23:25)
[2018-12-25] MEDS: METOCLOPRAMIDE HCL 10MG/2ML VIAL IV SCH ×3 (06:34→17:54)
[2018-12-25] MEDS: DILTIAZEM HCL 60MG TABLET PEG SCH ×3 (06:34→21:38)
[2018-12-25] MEDS: PIPERACILLIN/TAZ 3.375G PREMIX 50 ML IV SCH ×4 (06:34→23:24)
[2018-12-25 08:53] LABS: BASOPHILS % 0.2 % (0.0-2.0); EOSINOPHILS % 0.3 % (0.0-5.0); HEMATOCRIT. 33.7 % (42.0-52.0); HEMOGLOBIN. 10.8 g/dL (14.0-18.0); LYMPHOCYTES % 9.5 % (20.0-50.0); MEAN CORPUSCULAR HEMOGLOBIN 30.6 pg (28.0-32.0); MEAN PLATELET VOLUME 8.7 fl (7.4-10.4); MONOCYTES % 9.8 % (2.0-8.0); NEUTROPHILS % 80.2 % (40.0-76.0); PLATELET 216 x1000/uL (130-400); RED BLOOD CELL COUNT 3.55 mill/uL (4.7-6.1); RED CELL DISTRIBUTION WIDTH 12.6 % (11.6-14.6)
[2018-12-25 09:26] LABS: CHLORIDE 103 mEq/L (98-107)
[2018-12-25] MEDS: PANTOPRAZOLE SODIUM 40 MG/VIAL IV SCH (10:17)
[2018-12-25] MEDS: PREDNISONE 20MG TABLET PO SCH (10:18)
[2018-12-25] MEDS: RISPERIDONE 1MG TABLET PO SCH ×2 (10:18→21:38)
[2018-12-25] MEDS: LISINOPRIL 10MG TABLET PEG SCH ×2 (10:18→21:38)
[2018-12-25] MEDS: METOPROLOL TARTRATE 25MG TABLET PEG SCH ×2 (10:19→21:38)
[2018-12-25] MEDS: IPRATROPIUM/ALBUTEROL 0.5-3(2.5)MG/3ML NEB HHN PRN ×2 (12:15→16:09)
[2018-12-25] MEDS: MORPHINE SULFATE 4 MG/ML CPJ (NOT FOR IM USE) IV PRN (17:25)
[2018-12-26] VITALS (14 sets, daily range): BP systolic 114–154; BP diastolic 55–92
[2018-12-26] MEDS ORDERED: LORAZEPAM 2MG/ML CPJ IV PRN (01:45)
[2018-12-26] MEDS: MORPHINE SULFATE 4 MG/ML CPJ (NOT FOR IM USE) IV PRN ×3 (01:51→23:21)
[2018-12-26] MEDS: IPRATROPIUM BROMIDE (0.02%) 0.5MG/2.5ML NEB HHN SCH ×2 (02:26→08:50)
[2018-12-26] MEDS: BLOOD SUGAR DIAGNOSTIC STRIP TEST SCH ×4 (04:44→23:09)
[2018-12-26] MEDS: INSULIN LISPRO 100 UNITS/ML SUBCUT SCH ×4 (04:45→23:00)
[2018-12-26] MEDS: PIPERACILLIN/TAZ 3.375G PREMIX 50 ML IV SCH ×4 (05:03→23:11)
[2018-12-26] MEDS: DILTIAZEM HCL 60MG TABLET PEG SCH ×3 (05:04→21:41)
[2018-12-26] MEDS: LORAZEPAM 2MG/ML CPJ IV PRN ×3 (05:58→14:23)
[2018-12-26] MEDS: LISINOPRIL 10MG TABLET PEG SCH ×2 (09:37→21:41)
[2018-12-26] MEDS: METOPROLOL TARTRATE 25MG TABLET PEG SCH ×2 (09:37→21:41)
[2018-12-26] MEDS: RISPERIDONE 1MG TABLET PO SCH ×2 (09:37→21:41)
[2018-12-26] MEDS: PREDNISONE 20MG TABLET PO SCH (09:37)
[2018-12-26] MEDS: PANTOPRAZOLE SODIUM 40 MG/VIAL IV SCH (09:37)
[2018-12-26] MEDS: ENOXAPARIN 40MG/0.4ML SYR SUBCUT SCH (11:39)
[2018-12-26] MEDS: DEXT 5%/0.45% NACL 1000ML 1,000 ML IV SCH (12:02)
[2018-12-26] MEDS: IPRATROPIUM/ALBUTEROL 0.5-3(2.5)MG/3ML NEB HHN SCH ×4 (12:21→23:59)
[2018-12-26] MEDS ORDERED: ACETYLCYSTEINE 100MG/ML 10% VIAL 4ML INH SCH (14:00)
[2018-12-26] MEDS: ACETYLCYSTEINE 100MG/ML 10% VIAL 4ML INH SCH ×2 (16:46→23:59)
[2018-12-27] VITALS (12 sets, daily range): BP systolic 74–166; BP diastolic 23–95
[2018-12-27] MEDS: IPRATROPIUM/ALBUTEROL 0.5-3(2.5)MG/3ML NEB HHN SCH ×4 (04:07→20:27)
[2018-12-27] MEDS: INSULIN LISPRO 100 UNITS/ML SUBCUT SCH ×4 (04:31→22:20)
[2018-12-27] MEDS: DEXT 5%/0.45% NACL 1000ML 1,000 ML IV SCH ×2 (04:31→05:05)
[2018-12-27] MEDS: BLOOD SUGAR DIAGNOSTIC STRIP TEST SCH ×4 (04:31→22:20)
[2018-12-27] MEDS: LORAZEPAM 2MG/ML CPJ IV PRN ×3 (04:41→22:21)
[2018-12-27] MEDS: PIPERACILLIN/TAZ 3.375G PREMIX 50 ML IV SCH ×4 (05:01→23:20)
[2018-12-27] MEDS: DILTIAZEM HCL 60MG TABLET PEG SCH ×3 (05:02→21:41)
[2018-12-27] MEDS: MORPHINE SULFATE 4 MG/ML CPJ (NOT FOR IM USE) IV PRN ×3 (07:25→20:08)
[2018-12-27] MEDS: RISPERIDONE 1MG TABLET PO SCH ×2 (09:11→21:41)
[2018-12-27] MEDS: METOPROLOL TARTRATE 25MG TABLET PEG SCH ×2 (09:12→21:41)
[2018-12-27] MEDS: PANTOPRAZOLE SODIUM 40 MG/VIAL IV SCH (09:12)
[2018-12-27] MEDS: LISINOPRIL 10MG TABLET PEG SCH ×2 (09:12→21:40)
[2018-12-27] MEDS: ENOXAPARIN 40MG/0.4ML SYR SUBCUT SCH (09:13)
[2018-12-27] MEDS: ACETYLCYSTEINE 100MG/ML 10% VIAL 4ML INH SCH (15:24)
[2018-12-28] VITALS (15 sets, daily range): BP systolic 121–194; BP diastolic 65–102
[2018-12-28] MEDS: IPRATROPIUM/ALBUTEROL 0.5-3(2.5)MG/3ML NEB HHN SCH ×6 (00:26→20:12)
[2018-12-28] MEDS: ACETYLCYSTEINE 100MG/ML 10% VIAL 4ML INH SCH ×3 (00:29→16:14)
[2018-12-28] MEDS: INSULIN LISPRO 100 UNITS/ML SUBCUT SCH ×3 (05:00→23:00)
[2018-12-28] MEDS: PIPERACILLIN/TAZ 3.375G PREMIX 50 ML IV SCH ×4 (05:23→23:00)
[2018-12-28] MEDS: BLOOD SUGAR DIAGNOSTIC STRIP TEST SCH ×3 (05:23→23:00)
[2018-12-28] MEDS: DILTIAZEM HCL 60MG TABLET PEG SCH ×3 (05:24→21:36)
[2018-12-28 07:20] LABS: BASOPHILS % 0.5 % (0.0-2.0); EOSINOPHILS % 1.2 % (0.0-5.0); HEMOGLOBIN. 10.7 g/dL (14.0-18.0); LYMPHOCYTES % 14.5 % (20.0-50.0); MEAN CORPUSCULAR HEMOGLOBIN 31.6 pg (28.0-32.0); MEAN CORPUSCULAR VOLUME 94.8 fL (80.0-94.0); MONOCYTES % 7.2 % (2.0-8.0); NEUTROPHILS % 76.6 % (40.0-76.0); PLATELET 272 x1000/uL (130-400); RED BLOOD CELL COUNT 3.38 mill/uL (4.7-6.1); RED CELL DISTRIBUTION WIDTH 12.3 % (11.6-14.6)
[2018-12-28] MEDS: MORPHINE SULFATE 4 MG/ML CPJ (NOT FOR IM USE) IV PRN (07:28)
[2018-12-28 08:56] LABS: CHLORIDE 102 mEq/L (98-107)
[2018-12-28] MEDS: LISINOPRIL 10MG TABLET PEG SCH ×2 (10:36→21:37)
[2018-12-28] MEDS: ENOXAPARIN 40MG/0.4ML SYR SUBCUT SCH (10:36)
[2018-12-28] MEDS: PANTOPRAZOLE SODIUM 40 MG/VIAL IV SCH (10:37)
[2018-12-28] MEDS: METOPROLOL TARTRATE 25MG TABLET PEG SCH ×2 (10:37→21:37)
[2018-12-28] MEDS: RISPERIDONE 1MG TABLET PO SCH ×2 (10:47→21:37)
[2018-12-28 15:48] LABS: BG BASE EXCESS 8.4 mmol/L (-2.0-2.0); BG CARBOXYHEMOGLOBIN 0.3 % (0.5-1.5); BG DEOXYHEMOGLOBIN 1.7 % (0.0-5.0); BG FRACTION INSPIRED OXYGEN 40; BG HCO3 ACT 33.1 mmol/L (22.0-26.0); BG METHEMOGLOBIN 0.3 % (0.0-1.5); BG OXYGEN SATURATION 98.3 % (92.0-98.5); BG OXYHEMOGLOBIN 97.7 % (94.0-97.0); BG PCO2 46.3 mmHg (35.0-45.0); BG PH 7.472 (7.350-7.450); BG PO2 111.2 mmHg (75.0-100.0); BG SAMPLE SITE RIGHT RADIAL; BG TIDAL VOLUME(mL) 500 mL; BG TOTAL HEMOGLOBIN 11.2 g/dL (12.0-18.0); BG VENT MODE VENT - A/C; BG VENT RATE 12 set
[2018-12-28] MEDS: LORAZEPAM 2MG/ML CPJ IM PRN (18:35)
[2018-12-28] MEDS: QUETIAPINE FUMARATE 25MG TABLET PO SCH (21:36)
[2018-12-29] VITALS (16 sets, daily range): BP systolic 98–147; BP diastolic 57–83
[2018-12-29] MEDS: IPRATROPIUM/ALBUTEROL 0.5-3(2.5)MG/3ML NEB HHN SCH ×5 (00:11→21:21)
[2018-12-29] MEDS: ACETYLCYSTEINE 100MG/ML 10% VIAL 4ML INH SCH ×3 (00:11→16:20)
[2018-12-29] MEDS: INSULIN LISPRO 100 UNITS/ML SUBCUT SCH ×4 (05:00→23:00)
[2018-12-29] MEDS: PIPERACILLIN/TAZ 3.375G PREMIX 50 ML IV SCH ×4 (05:04→23:30)
[2018-12-29] MEDS: LORAZEPAM 2MG/ML CPJ IM PRN ×2 (05:04→20:30)
[2018-12-29] MEDS: BLOOD SUGAR DIAGNOSTIC STRIP TEST SCH ×4 (05:13→23:29)
[2018-12-29] MEDS: DILTIAZEM HCL 60MG TABLET PEG SCH ×3 (05:19→21:32)
[2018-12-29] MEDS: ENOXAPARIN 40MG/0.4ML SYR SUBCUT SCH (09:25)
[2018-12-29] MEDS: QUETIAPINE FUMARATE 25MG TABLET PO SCH ×2 (09:25→20:30)
[2018-12-29] MEDS: PANTOPRAZOLE SODIUM 40 MG/VIAL IV SCH (09:25)
[2018-12-29] MEDS: LISINOPRIL 10MG TABLET PEG SCH ×2 (09:26→20:30)
[2018-12-29] MEDS: METOPROLOL TARTRATE 25MG TABLET PEG SCH ×2 (09:26→20:30)
[2018-12-29] MEDS: RISPERIDONE 1MG TABLET PO SCH ×2 (09:28→20:34)
[2018-12-29] MEDS: MORPHINE SULFATE 4 MG/ML CPJ (NOT FOR IM USE) IV PRN (15:12)
[2018-12-30] VITALS (12 sets, daily range): BP systolic 103–145; BP diastolic 64–98
[2018-12-30] MEDS: MORPHINE SULFATE 4 MG/ML CPJ (NOT FOR IM USE) IV PRN (01:58)
[2018-12-30] MEDS: IPRATROPIUM/ALBUTEROL 0.5-3(2.5)MG/3ML NEB HHN SCH ×5 (02:49→20:56)
[2018-12-30] MEDS: BLOOD SUGAR DIAGNOSTIC STRIP TEST SCH ×4 (05:00→23:00)
[2018-12-30] MEDS: INSULIN LISPRO 100 UNITS/ML SUBCUT SCH ×4 (05:00→23:00)
[2018-12-30] MEDS: DILTIAZEM HCL 60MG TABLET PEG SCH ×2 (06:00→13:49)
[2018-12-30] MEDS: LORAZEPAM 2MG/ML CPJ IM PRN (06:45)
[2018-12-30] MEDS: PIPERACILLIN/TAZ 3.375G PREMIX 50 ML IV SCH ×3 (07:18→18:07)
[2018-12-30] MEDS: RISPERIDONE 1MG TABLET PO SCH ×2 (10:16→20:36)
[2018-12-30] MEDS: LISINOPRIL 10MG TABLET PEG SCH ×2 (10:16→20:36)
[2018-12-30] MEDS: PANTOPRAZOLE SODIUM 40 MG/VIAL IV SCH (10:17)
[2018-12-30] MEDS: METOPROLOL TARTRATE 25MG TABLET PEG SCH ×2 (10:17→20:36)
[2018-12-30] MEDS: QUETIAPINE FUMARATE 25MG TABLET PO SCH ×2 (10:17→20:36)
[2018-12-30] MEDS: ENOXAPARIN 40MG/0.4ML SYR SUBCUT SCH (10:17)
[2018-12-30 20:35] LABS: HEMATOCRIT 31.6 % (42.0-52.0); HEMOGLOBIN 10.3 g/dL (14.0-18.0); MEAN CORPUSCULAR HEMOGLOBIN 31.4 pg (28.0-32.0); MEAN CORPUSCULAR VOLUME 95.7 fL (80.0-94.0); PLATELET 220 x1000/uL (130-400); RED CELL DISTRIBUTION WIDTH 12.7 % (11.6-14.6)
[2018-12-31] VITALS (17 sets, daily range): BP systolic 85–148; BP diastolic 45–86
[2018-12-31] MEDS: PIPERACILLIN/TAZ 3.375G PREMIX 50 ML IV SCH ×4 (00:21→18:15)
[2018-12-31] MEDS: MORPHINE SULFATE 4 MG/ML CPJ (NOT FOR IM USE) IV PRN ×2 (00:22→16:11)
[2018-12-31] MEDS: DILTIAZEM HCL 60MG TABLET PEG SCH ×4 (00:43→21:01)
[2018-12-31] MEDS: IPRATROPIUM/ALBUTEROL 0.5-3(2.5)MG/3ML NEB HHN SCH ×6 (00:53→20:10)
[2018-12-31] MEDS: BLOOD SUGAR DIAGNOSTIC STRIP TEST SCH ×4 (05:00→23:35)
[2018-12-31] MEDS: INSULIN LISPRO 100 UNITS/ML SUBCUT SCH ×4 (05:00→23:00)
[2018-12-31] MEDS: LORAZEPAM 2MG/ML CPJ IM PRN ×3 (06:27→21:56)
[2018-12-31] MEDS: ENOXAPARIN 40MG/0.4ML SYR SUBCUT SCH (10:04)
[2018-12-31] MEDS: PANTOPRAZOLE SODIUM 40 MG/VIAL IV SCH (10:04)
[2018-12-31] MEDS: METOPROLOL TARTRATE 25MG TABLET PEG SCH ×2 (10:05→20:58)
[2018-12-31] MEDS: LISINOPRIL 10MG TABLET PEG SCH ×2 (10:05→20:59)
[2018-12-31] MEDS: QUETIAPINE FUMARATE 25MG TABLET PO SCH ×2 (10:05→20:59)
[2018-12-31] MEDS: RISPERIDONE 1MG TABLET PO SCH ×2 (10:05→20:59)
[2018-12-31] MEDS: BUDESONIDE 0.5MG/2ML NEB HHN SCH (20:10)
[2018-12-31] MEDS: LACTULOSE 20G/30ML UDC PO SCH (21:01)
[2019-01-01] VITALS (20 sets, daily range): BP systolic 75–162; BP diastolic 48–105
[2019-01-01] MEDS: IPRATROPIUM/ALBUTEROL 0.5-3(2.5)MG/3ML NEB HHN SCH ×6 (00:15→20:19)
[2019-01-01] MEDS: BLOOD SUGAR DIAGNOSTIC STRIP TEST SCH ×3 (04:23→17:00)
[2019-01-01] MEDS: INSULIN LISPRO 100 UNITS/ML SUBCUT SCH ×3 (04:26→17:00)
[2019-01-01] MEDS: LACTULOSE 20G/30ML UDC PO SCH ×2 (05:11→13:28)
[2019-01-01] MEDS: DILTIAZEM HCL 60MG TABLET PEG SCH ×2 (06:43→13:28)
[2019-01-01] MEDS: BUDESONIDE 0.5MG/2ML NEB HHN SCH ×2 (08:03→20:19)
[2019-01-01] MEDS: RISPERIDONE 1MG TABLET PO SCH (09:47)
[2019-01-01] MEDS: PANTOPRAZOLE SODIUM 40 MG/VIAL IV SCH (09:47)
[2019-01-01] MEDS: METOPROLOL TARTRATE 25MG TABLET PEG SCH (09:47)
[2019-01-01] MEDS: LISINOPRIL 10MG TABLET PEG SCH (09:47)
[2019-01-01] MEDS: QUETIAPINE FUMARATE 25MG TABLET PO SCH (09:47)
[2019-01-01] MEDS: ENOXAPARIN 40MG/0.4ML SYR SUBCUT SCH (09:48)
[2019-01-01] MEDS: MORPHINE SULFATE 4 MG/ML CPJ (NOT FOR IM USE) IV PRN (10:31)
[2019-01-01] MEDS: LORAZEPAM 2MG/ML CPJ IM PRN (20:00)
== END 2019-01-01 20:00 | DRG 3 ==
LOC: ER 17:35 → CVICU 19:10 → ENRESERV 20:05 → 5EST 12-26 01:20
PROVIDERS: ADMIT Internal Medicine; ATTEND Internal Medicine
PROC: 0BH17EZ Insertion of Endotracheal Airway into Trachea, Via Natural or Artificial Opening (ICD-10-PCS; principal; 2018-12-12)
PROC: 5A1955Z Respiratory Ventilation, Greater than 96 Consecutive Hours (ICD-10-PCS; 2018-12-12)
PROC: 5A09357 Assistance with Respiratory Ventilation, Less than 24 Consecutive Hours, Continuous Positive Airway Pressure (ICD-10-PCS; 2018-12-12)
PROC: 0B110F4 Bypass Trachea to Cutaneous with Tracheostomy Device, Open Approach (ICD-10-PCS; 2018-12-19)
PROC: 0GBJ0ZZ Excision of Thyroid Gland Isthmus, Open Approach (ICD-10-PCS; 2018-12-19)
PROC: 5A1955Z Respiratory Ventilation, Greater than 96 Consecutive Hours (ICD-10-PCS; 2018-12-19)
PROC: 02HV33Z Insertion of Infusion Device into Superior Vena Cava, Percutaneous Approach (ICD-10-PCS; 2018-12-20)
PROC: B548ZZA Ultrasonography of Superior Vena Cava, Guidance (ICD-10-PCS; 2018-12-20)
PROC: 0DB68ZX Excision of Stomach, Via Natural or Artificial Opening Endoscopic, Diagnostic (ICD-10-PCS; 2018-12-23)
PROC: 0DH63UZ Insertion of Feeding Device into Stomach, Percutaneous Approach (ICD-10-PCS; 2018-12-23)
DX: J96.22 Acute and chronic respiratory failure with hypercapnia (principal); E46 Unspecified protein-calorie malnutrition; E87.0 Hyperosmolality and hypernatremia; J98.11 Atelectasis; I47.1 Supraventricular tachycardia; Z99.11 Dependence on respirator [ventilator] status; J43.9 Emphysema, unspecified; E87.6 Hypokalemia; I10 Essential (primary) hypertension; R73.9 Hyperglycemia, unspecified; K29.70 Gastritis, unspecified, without bleeding; R13.12 Dysphagia, oropharyngeal phase; T38.0X5A Adverse effect of glucocorticoids and synthetic analogues, initial encounter; Z78.1 Physical restraint status; Z68.29 Body mass index [BMI] 29.0-29.9, adult; Z79.51 Long term (current) use of inhaled steroids; Z79.899 Other long term (current) drug therapy
CPT/HCPCS: 36415; 36569; 36600; 71045; 71275; 76937; 80048; 80305; 82140; 82375; 82805; 82962; 83036; 83735; 83880; 84478; 84484; 85027; 87070; 88305; 88312; 88313; 92950; 93005; 93970; 94002; 94003; 94640; 94660; 96365; 96375; 99285; A6261; C1725; C9113; J0360; J0690; J1200; J1650; J1815; J1956; J2060; J2250; J2270; J2543; J2704; J2765; J2920; J2930; J3010; J3475; J3480; J3490; J7030; J7050; J7060; J7512; J7608; J7611; J7620; J7626; Q9967; A4315

== ENCOUNTER 2019-12-13 16:55 | Inpatient (IN) | payer MEDICARE, MEDICAID ==
[~2019-12-13] VITALS: Ht 180.3 cm; Wt 60.3 kg
[2019-12-13] MEDS ORDERED: IPRATROPIUM BROMIDE (0.02%) 0.5MG/2.5ML NEB HHN STA (17:07)
[2019-12-13] MEDS ORDERED: ALBUTEROL (0.083%) 2.5MG/3ML NEB HHN STA (17:07)
[2019-12-13] MEDS ORDERED: LABETALOL 5MG/ML SYR 20 MG/4 ML SYRINGE IV ONE (17:15)
[2019-12-13] MEDS ORDERED: ASPIRIN 81MG TABLET PO ONE (17:15)
[2019-12-13 17:40] LABS: BASOPHILS % 0.6 % (0.0-2.0); EOSINOPHILS % 0.1 % (0.0-5.0); HEMATOCRIT. 42.7 % (42.0-52.0); HEMOGLOBIN. 14.1 g/dL (14.0-18.0); MEAN CORPUSCULAR HEMOGLOBIN 31.3 pg (28.0-32.0); MEAN CORPUSCULAR VOLUME 94.9 fL (80.0-94.0); MEAN PLATELET VOLUME 7.8 fl (7.4-10.4); MONOCYTES % 1.4 % (2.0-8.0); NEUTROPHILS % 87.9 % (40.0-76.0); PLATELET 279 x1000/uL (130-400); RED CELL DISTRIBUTION WIDTH 13.1 % (11.6-14.6)
[2019-12-13 17:45] LABS: CHLORIDE 114 mEq/L (98-107)
[2019-12-13 17:49] LABS: ETHANOL BLOOD < 10 mg/dL
[2019-12-13 17:50] LABS: BG BASE EXCESS 2.6 mmol/L (-2.0-2.0); BG BILEVEL POS AIRWAY PRESSURE 15/5; BG CARBOXYHEMOGLOBIN 0.1 % (0.5-1.5); BG DEOXYHEMOGLOBIN 0.3 % (0.0-5.0); BG FRACTION INSPIRED OXYGEN 50; BG HCO3 ACT 28.4 mmol/L (22.0-26.0); BG METHEMOGLOBIN 0.4 % (0.0-1.5); BG OXYGEN SATURATION 99.7 % (92.0-98.5); BG OXYHEMOGLOBIN 99.2 % (94.0-97.0); BG PCO2 48.1 mmHg (35.0-45.0); BG PH 7.389 (7.350-7.450); BG PO2 453.3 mmHg (75.0-100.0); BG SAMPLE SITE RIGHT RADIAL; BG VENT MODE MASK - BIPAP; BG VENT RATE 16 set
[2019-12-13 17:52] LABS: INR 1.1; PROTHROMBIN TIME 11.6 sec (9.6-11.0)
[2019-12-13] MEDS ORDERED: ALBUTEROL (0.5%) 2.5MG/0.5ML NEB HHN ONE (19:00)
[2019-12-13] MEDS ORDERED: METHYLPREDNISOLONE SOD SUCC 125 MG/2 ML VIAL IV NR (20:00)
[2019-12-13 20:47] VITALS: BP 115/77
[2019-12-13 22:00] VITALS: BP 116/71
[2019-12-14] VITALS (13 sets, daily range): BP systolic 106–144; BP diastolic 63–92
[2019-12-14] MEDS ORDERED: LEVOFLOXACIN 500MG PREMIX 100 ML IV SCH (01:00)
[2019-12-14] MEDS ORDERED: CLONIDINE 0.1MG TABLET PO PRN (01:00)
[2019-12-14] MEDS: DEXT 5%/0.45% NACL 1000ML 1,000 ML IV SCH ×2 (01:58→15:09)
[2019-12-14] MEDS ORDERED: ACETAMINOPHEN 325MG TABLET PO PRN (03:00)
[2019-12-14] MEDS: LEVOFLOXACIN 500MG PREMIX 100 ML IV SCH (03:43)
[2019-12-14] MEDS: IPRATROPIUM/ALBUTEROL 0.5-3(2.5)MG/3ML NEB HHN SCH ×5 (04:04→20:06)
[2019-12-14] MEDS: METHYLPREDNISOLONE SOD SUCC 40 MG/ML VIAL IV SCH ×3 (05:40→21:07)
[2019-12-14 06:43] LABS: BASOPHILS % 0.2 % (0.0-2.0); HEMATOCRIT. 36.9 % (42.0-52.0); HEMOGLOBIN. 12.3 g/dL (14.0-18.0); LYMPHOCYTES % 13.3 % (20.0-50.0); MEAN CORPUSCULAR HEMOGLOBIN 30.9 pg (28.0-32.0); MEAN CORPUSCULAR VOLUME 92.7 fL (80.0-94.0); MONOCYTES % 1.4 % (2.0-8.0); NEUTROPHILS % 85.1 % (40.0-76.0); PLATELET 260 x1000/uL (130-400); RED BLOOD CELL COUNT 3.98 mill/uL (4.7-6.1); RED CELL DISTRIBUTION WIDTH 13.1 % (11.6-14.6)
[2019-12-14 06:44] LABS: BG BASE EXCESS 1.6 mmol/L (-2.0-2.0); BG BILEVEL POS AIRWAY PRESSURE 15/5; BG CARBOXYHEMOGLOBIN 0.3 % (0.5-1.5); BG DEOXYHEMOGLOBIN 0.8 % (0.0-5.0); BG HCO3 ACT 26.3 mmol/L (22.0-26.0); BG METHEMOGLOBIN 0.2 % (0.0-1.5); BG OXYGEN SATURATION 99.2 % (92.0-98.5); BG OXYHEMOGLOBIN 98.7 % (94.0-97.0); BG PCO2 41.4 mmHg (35.0-45.0); BG PO2 208.2 mmHg (75.0-100.0); BG SAMPLE SITE RIGHT RADIAL; BG TOTAL HEMOGLOBIN 13.3 g/dL (12.0-18.0); BG VENT MODE MASK - BIPAP; BG VENT RATE 16 set
[2019-12-14 06:49] LABS: CHLORIDE 105 mEq/L (98-107)
[2019-12-14] MEDS: PANTOPRAZOLE SODIUM 40 MG/VIAL IV SCH (08:30)
[2019-12-14] MEDS: ENOXAPARIN 40MG/0.4ML SYR SUBCUT SCH (08:30)
[2019-12-15] VITALS (12 sets, daily range): BP systolic 112–139; BP diastolic 65–88
[2019-12-15] MEDS: IPRATROPIUM/ALBUTEROL 0.5-3(2.5)MG/3ML NEB HHN SCH ×6 (02:08→20:54)
[2019-12-15] MEDS: METHYLPREDNISOLONE SOD SUCC 40 MG/ML VIAL IV SCH ×3 (05:05→22:30)
[2019-12-15] MEDS: DEXT 5%/0.45% NACL 1000ML 1,000 ML IV SCH ×2 (05:05→22:30)
[2019-12-15 07:14] LABS: CHLORIDE 105 mEq/L (98-107)
[2019-12-15 07:20] LABS: HEMATOCRIT. 35.2 % (42.0-52.0); HEMOGLOBIN. 11.6 g/dL (14.0-18.0); MEAN CORPUSCULAR HEMOGLOBIN 30.6 pg (28.0-32.0); MEAN CORPUSCULAR VOLUME 92.5 fL (80.0-94.0); MEAN PLATELET VOLUME 8.1 fl (7.4-10.4); PLATELET 239 x1000/uL (130-400); RED CELL DISTRIBUTION WIDTH 13.1 % (11.6-14.6)
[2019-12-15] MEDS: PANTOPRAZOLE SODIUM 40 MG/VIAL IV SCH (08:30)
[2019-12-15] MEDS: LEVOFLOXACIN 500MG PREMIX 100 ML IV SCH (08:30)
[2019-12-15] MEDS: ENOXAPARIN 40MG/0.4ML SYR SUBCUT SCH (08:31)
[2019-12-15 11:59] LABS: PLATELET ESTIMATE NORMAL
[2019-12-15 12:31] LABS: BG CARBOXYHEMOGLOBIN 0.2 % (0.5-1.5); BG DEOXYHEMOGLOBIN 5.5 % (0.0-5.0); BG FRACTION INSPIRED OXYGEN 21; BG HCO3 ACT 27.3 mmol/L (22.0-26.0); BG METHEMOGLOBIN 0.3 % (0.0-1.5); BG OXYGEN SATURATION 94.5 % (92.0-98.5); BG PCO2 40.8 mmHg (35.0-45.0); BG PH 7.443 (7.350-7.450); BG PO2 67.3 mmHg (75.0-100.0); BG SAMPLE SITE RIGHT RADIAL; BG TOTAL HEMOGLOBIN 12.9 g/dL (12.0-18.0); BG VENT MODE ROOM AIR
[2019-12-15] MEDS: MORPHINE SULFATE 2 MG/ML CPJ (NOT FOR IM USE) IV PRN (22:45)
[2019-12-16] VITALS (9 sets, daily range): BP systolic 105–152; BP diastolic 58–89
[2019-12-16] MEDS: IPRATROPIUM/ALBUTEROL 0.5-3(2.5)MG/3ML NEB HHN SCH ×7 (00:28→20:38)
[2019-12-16] MEDS: METHYLPREDNISOLONE SOD SUCC 40 MG/ML VIAL IV SCH ×3 (05:13→21:37)
[2019-12-16 07:22] LABS: HEMATOCRIT 38.3 % (42.0-52.0); HEMOGLOBIN 12.8 g/dL (14.0-18.0); MEAN CORPUSCULAR HEMOGLOBIN 31.4 pg (28.0-32.0); MEAN CORPUSCULAR VOLUME 94.3 fL (80.0-94.0); PLATELET 213 x1000/uL (130-400); RED BLOOD CELL COUNT 4.07 mill/uL (4.7-6.1)
[2019-12-16 07:43] LABS: CHLORIDE 104 mEq/L (98-107)
[2019-12-16] MEDS: DEXT 5%/0.45% NACL 1000ML 1,000 ML IV SCH (07:50)
[2019-12-16] MEDS: PANTOPRAZOLE SODIUM 40 MG/VIAL IV SCH (09:14)
[2019-12-16] MEDS: ENOXAPARIN 40MG/0.4ML SYR SUBCUT SCH (10:38)
[2019-12-16] MEDS: LEVOFLOXACIN 500MG PREMIX 100 ML IV SCH (10:38)
[2019-12-16] MEDS ORDERED: ONDANSETRON HCL 4MG/2ML INJ IV PRN (14:15)
[2019-12-16] MEDS ORDERED: GUAIFENESIN 200MG/10ML SUGAR FREE UDC PO PRN (14:15)
[2019-12-16] MEDS ORDERED: HYDRALAZINE 20MG/ML VIAL IV PRN (14:15)
[2019-12-16] MEDS: DILTIAZEM HCL 30MG TABLET PO SCH ×2 (15:18→21:37)
[2019-12-16] MEDS: BUDESONIDE 0.5MG/2ML NEB HHN SCH (20:38)
[2019-12-16] MEDS ORDERED: LACTULOSE 20G/30ML UDC PO PRN (21:00)
[2019-12-17] VITALS (9 sets, daily range): BP systolic 117–143; BP diastolic 60–81
[2019-12-17] MEDS: IPRATROPIUM/ALBUTEROL 0.5-3(2.5)MG/3ML NEB HHN SCH ×6 (00:55→21:59)
[2019-12-17] MEDS: METHYLPREDNISOLONE SOD SUCC 40 MG/ML VIAL IV SCH ×3 (06:23→21:19)
[2019-12-17 07:41] LABS: HEMATOCRIT. 37.9 % (42.0-52.0); HEMOGLOBIN. 12.6 g/dL (14.0-18.0); MEAN CORPUSCULAR HEMOGLOBIN 31.1 pg (28.0-32.0); MEAN CORPUSCULAR VOLUME 93.9 fL (80.0-94.0); MEAN PLATELET VOLUME 8.8 fl (7.4-10.4); PLATELET 175 x1000/uL (130-400); RED BLOOD CELL COUNT 4.04 mill/uL (4.7-6.1)
[2019-12-17 07:47] LABS: CHLORIDE 103 mEq/L (98-107)
[2019-12-17] MEDS: DILTIAZEM HCL 30MG TABLET PO SCH ×2 (08:04→21:19)
[2019-12-17] MEDS: FAMOTIDINE 20MG TABLET PO SCH ×2 (08:04→21:20)
[2019-12-17] MEDS: ENOXAPARIN 40MG/0.4ML SYR SUBCUT SCH (08:04)
[2019-12-17] MEDS: BUDESONIDE 0.5MG/2ML NEB HHN SCH ×2 (08:31→21:59)
[2019-12-17] MEDS: LEVOFLOXACIN 500MG PREMIX 100 ML IV SCH (09:51)
[2019-12-17 12:33] LABS: PLATELET ESTIMATE NORMAL
[2019-12-17] MEDS: MORPHINE SULFATE 2 MG/ML CPJ (NOT FOR IM USE) IV PRN ×2 (16:46→21:21)
[2019-12-18] VITALS: BP 148/76
[2019-12-18] MEDS: IPRATROPIUM/ALBUTEROL 0.5-3(2.5)MG/3ML NEB HHN SCH ×5 (01:00→15:51)
[2019-12-18] MEDS: MORPHINE SULFATE 2 MG/ML CPJ (NOT FOR IM USE) IV PRN ×3 (01:22→14:41)
[2019-12-18 04:00] VITALS: BP 148/86
[2019-12-18] MEDS: METHYLPREDNISOLONE SOD SUCC 40 MG/ML VIAL IV SCH ×2 (05:39→14:40)
[2019-12-18 08:00] VITALS: BP 145/83
[2019-12-18] MEDS: BUDESONIDE 0.5MG/2ML NEB HHN SCH (08:16)
[2019-12-18] MEDS: DILTIAZEM HCL 30MG TABLET PO SCH (09:27)
[2019-12-18] MEDS: FAMOTIDINE 20MG TABLET PO SCH (09:27)
[2019-12-18] MEDS ORDERED: LEVOFLOXACIN 250MG TABLET PO SCH (11:00)
[2019-12-18] MEDS: ENOXAPARIN 40MG/0.4ML SYR SUBCUT SCH (11:55)
[2019-12-18 12:00] VITALS: BP 158/69
[2019-12-18 14:41] VITALS: BP 145/83
[2019-12-18] MEDS ORDERED: FAMO-135 MT (16:46)
[2019-12-18] MEDS ORDERED: FLUT1AER INH (16:46)
[2019-12-18] MEDS ORDERED: P20 PO (16:46)
[2019-12-18] MEDS ORDERED: DILT30TA38 MT (16:46)
[2019-12-18] MEDS ORDERED: IPRA3AMP9 NEB (16:46)
== END 2019-12-18 18:48 | disposition left against medical advice (07) | DRG 189 ==
LOC: ER 16:55 → 3WST 18:55 → EDBEDREQSVC 19:05 → EDBEDREQ 19:05 → ENRESERV 19:10 → 5WST 12-17 10:25
PROVIDERS: ADMIT Internal Medicine; ATTEND Internal Medicine
PROC: 5A09357 Assistance with Respiratory Ventilation, Less than 24 Consecutive Hours, Continuous Positive Airway Pressure (ICD-10-PCS; principal; 2019-12-13)
PROC: 5A09357 Assistance with Respiratory Ventilation, Less than 24 Consecutive Hours, Continuous Positive Airway Pressure (ICD-10-PCS; 2019-12-14)
DX: J96.00 Acute respiratory failure, unspecified whether with hypoxia or hypercapnia (principal); J44.1 Chronic obstructive pulmonary disease with (acute) exacerbation; E44.0 Moderate protein-calorie malnutrition; J84.9 Interstitial pulmonary disease, unspecified; Z68.1 Body mass index [BMI] 19.9 or less, adult; E87.8 Other disorders of electrolyte and fluid balance, not elsewhere classified; E11.9 Type 2 diabetes mellitus without complications; I10 Essential (primary) hypertension; I70.0 Atherosclerosis of aorta; D64.9 Anemia, unspecified; F10.11 Alcohol abuse, in remission; Z60.2 Problems related to living alone; Z53.29 Procedure and treatment not carried out because of patient's decision for other reasons; Z93.1 Gastrostomy status; Z87.891 Personal history of nicotine dependence; Z99.81 Dependence on supplemental oxygen; Z93.0 Tracheostomy status
CPT/HCPCS: 36415; 36600; 71045; 80048; 80053; 80320; 82375; 82805; 83036; 83880; 84484; 85025; 85027; 87804; 93005; 93306; 94640; 94660; 97110; 97116; 97162; 99291; C9113; J1650; J1956; J2270; J2920; J2930; J7626; G0480

== ENCOUNTER 2019-12-19 | Emergency (ER) | payer MEDICARE, MEDICAID ==
[~2019-12-19] VITALS: Ht 180.3 cm; Wt 59.0 kg
[~2019-12-19] MED LIST: DILT30TA38 MT; FAMO-135 MT; FLUT1AER INH; IPRA3AMP9 NEB; P20 PO
[2019-12-19] MEDS ORDERED: IPRATROPIUM BROMIDE (0.02%) 0.5MG/2.5ML NEB HHN STA (01:13)
[2019-12-19] MEDS ORDERED: ALBUTEROL (0.083%) 2.5MG/3ML NEB HHN STA (01:13)
[2019-12-19 05:16] VITALS: BP 148/80
== END 2019-12-19 06:16 | disposition left against medical advice (07) ==
LOC: ER
DX: R06.02 Shortness of breath (principal); J44.9 Chronic obstructive pulmonary disease, unspecified; Z98.890 Other specified postprocedural states; Z79.899 Other long term (current) drug therapy
CPT/HCPCS: 94644; 99285

== ENCOUNTER 2019-12-24 00:30 | Inpatient (IN) | payer MEDICARE, MEDICAID ==
[~2019-12-24] VITALS: Ht 182.9 cm; Wt 64.2 kg
[2019-12-24] MEDS ORDERED: IPRATROPIUM BROMIDE (0.02%) 0.5MG/2.5ML NEB HHN STA ×2 (00:56→03:05)
[2019-12-24] MEDS ORDERED: ALBUTEROL (0.083%) 2.5MG/3ML NEB HHN STA ×2 (00:56→03:05)
[2019-12-24] MEDS ORDERED: METHYLPREDNISOLONE SOD SUCC 125 MG/2 ML VIAL IV STA (00:56)
[2019-12-24] MEDS ORDERED: MAGNESIUM 2 G PREMIX 50 ML IV STA (00:56)
[2019-12-24 01:36] LABS: BASOPHILS % 0.5 % (0.0-2.0); EOSINOPHILS % 0.5 % (0.0-5.0); HEMATOCRIT. 42.6 % (42.0-52.0); HEMOGLOBIN. 14.1 g/dL (14.0-18.0); LYMPHOCYTES % 20.1 % (20.0-50.0); MEAN CORPUSCULAR HEMOGLOBIN 31.3 pg (28.0-32.0); MEAN PLATELET VOLUME 8.5 fl (7.4-10.4); MONOCYTES % 8.4 % (2.0-8.0); NEUTROPHILS % 70.5 % (40.0-76.0); PLATELET 277 x1000/uL (130-400); RED BLOOD CELL COUNT 4.49 mill/uL (4.7-6.1)
[2019-12-24 01:42] LABS: CHLORIDE 108 mEq/L (98-107)
[2019-12-24 05:47] LABS: CLARITY URINE CLEAR (CLEAR); COLOR URINE YELLOW (YELLOW); KETONES URINE NEGATIVE (NEGATIVE); LEUKOCYTE ESTERASE URINE NEGATIVE (NEGATIVE); NITRITE URINE NEGATIVE (NEGATIVE); OCCULT BLOOD URINE NEGATIVE (NEGATIVE); PROTEIN URINE TRACE (NEGATIVE); SPECIFIC GRAVITY URINE 1.024 (1.005-1.030)
[2019-12-24] MEDS: METHYLPREDNISOLONE SOD SUCC 40 MG/ML VIAL IV SCH ×2 (12:26→22:12)
[2019-12-24 12:31] VITALS: BP 149/91
[2019-12-24 13:35] LABS: BG BASE EXCESS 0.5 mmol/L (-2.0-2.0); BG CARBOXYHEMOGLOBIN 0.1 % (0.5-1.5); BG DEOXYHEMOGLOBIN 3.8 % (0.0-5.0); BG FRACTION INSPIRED OXYGEN 28; BG HCO3 ACT 24.1 mmol/L (22.0-26.0); BG METHEMOGLOBIN 0.2 % (0.0-1.5); BG OXYGEN SATURATION 96.2 % (92.0-98.5); BG OXYHEMOGLOBIN 95.9 % (94.0-97.0); BG PCO2 35.9 mmHg (35.0-45.0); BG PH 7.445 (7.350-7.450); BG PO2 79.5 mmHg (75.0-100.0); BG SAMPLE SITE RIGHT RADIAL; BG TOTAL HEMOGLOBIN 14.3 g/dL (12.0-18.0); BG VENT MODE NASAL CANNULA
[2019-12-24] MEDS ORDERED: IPRATROPIUM/ALBUTEROL 0.5-3(2.5)MG/3ML NEB HHN ONE (13:45)
[2019-12-24] MEDS ORDERED: BUDESONIDE 0.5MG/2ML NEB HHN NR (13:45)
[2019-12-24 16:00] VITALS: BP 140/87
[2019-12-24 16:55] LABS: HEMATOCRIT. 40.7 % (42.0-52.0); HEMOGLOBIN. 13.4 g/dL (14.0-18.0); MEAN CORPUSCULAR HEMOGLOBIN 31.1 pg (28.0-32.0); MEAN CORPUSCULAR VOLUME 94.5 fL (80.0-94.0); MEAN PLATELET VOLUME 8.5 fl (7.4-10.4); PLATELET 261 x1000/uL (130-400); RED BLOOD CELL COUNT 4.31 mill/uL (4.7-6.1); RED CELL DISTRIBUTION WIDTH 13.6 % (11.6-14.6)
[2019-12-24 17:01] LABS: PROTHROMBIN TIME 11.3 sec (9.6-11.0)
[2019-12-24 17:15] LABS: CHLORIDE 107 mEq/L (98-107)
[2019-12-24] MEDS ORDERED: ACETAMINOPHEN 650MG SUPP PR PRN (17:15)
[2019-12-24] MEDS ORDERED: DIPHENHYDRAMINE 50MG/ML VIAL IV PRN (17:15)
[2019-12-24] MEDS ORDERED: BISACODYL 10MG SUPP PR PRN (17:15)
[2019-12-24] MEDS ORDERED: HYDRALAZINE 20MG/ML VIAL IV PRN (17:15)
[2019-12-24] MEDS: LORATADINE 10MG TABLET PO SCH (18:17)
[2019-12-24] MEDS ORDERED: LEVOFLOXACIN 500MG PREMIX 100 ML IV SCH (18:30)
[2019-12-24] MEDS: IPRATROPIUM/ALBUTEROL 0.5-3(2.5)MG/3ML NEB HHN SCH (19:27)
[2019-12-24 20:00] VITALS: BP 126/82
[2019-12-24 21:06] LABS: PLATELET ESTIMATE NORMAL
[2019-12-24 21:56] LABS: *AMPHETAMINES SCREEN URINE NEGATIVE (NEGATIVE); *BARBITURATES SCREEN URINE NEGATIVE (NEGATIVE); *BENZODIAZEPINES SCREEN URINE NEGATIVE (NEGATIVE); *COCAINE SCREEN URINE NEGATIVE (NEGATIVE); METHADONE URINE SCREEN NEGATIVE (NEGATIVE); OPIATES URINE SCREEN PRESUMTIVE POSITIVE (NEGATIVE)
[2019-12-24 21:58] LABS: CANNABINOID URINE SCREEN NEGATIVE (NEGATIVE); PHENCYCLIDINE URINE SCREEN NEGATIVE (NEGATIVE)
[2019-12-25] VITALS: BP 125/81
[2019-12-25] MEDS: IPRATROPIUM/ALBUTEROL 0.5-3(2.5)MG/3ML NEB HHN SCH ×4 (02:30→20:59)
[2019-12-25 04:00] VITALS: BP 150/94
[2019-12-25] MEDS: HYDROCODONE/ACETAMINOPHEN 5/325MG TABLET PO PRN ×3 (04:03→20:17)
[2019-12-25] MEDS: METHYLPREDNISOLONE SOD SUCC 40 MG/ML VIAL IV SCH ×3 (06:27→21:36)
[2019-12-25 06:44] LABS: HEMATOCRIT. 37.8 % (42.0-52.0); HEMOGLOBIN. 12.6 g/dL (14.0-18.0); MEAN CORPUSCULAR HEMOGLOBIN 31.2 pg (28.0-32.0); MEAN CORPUSCULAR VOLUME 93.6 fL (80.0-94.0); MEAN PLATELET VOLUME 8.3 fl (7.4-10.4); PLATELET 216 x1000/uL (130-400); RED BLOOD CELL COUNT 4.03 mill/uL (4.7-6.1); RED CELL DISTRIBUTION WIDTH 13.7 % (11.6-14.6)
[2019-12-25 06:50] LABS: CHLORIDE 106 mEq/L (98-107)
[2019-12-25 08:00] VITALS: BP 117/84
[2019-12-25 08:01] LABS: PLATELET ESTIMATE NORMAL
[2019-12-25] MEDS: LORATADINE 10MG TABLET PO SCH (09:35)
[2019-12-25 12:00] VITALS: BP 142/81
[2019-12-25 16:00] VITALS: BP 134/84
[2019-12-25] MEDS: LEVOFLOXACIN 500MG PREMIX 100 ML IV SCH (17:44)
[2019-12-25] MEDS: ENOXAPARIN 40MG/0.4ML SYR SUBCUT SCH (17:44)
[2019-12-25] MEDS: MONTELUKAST SODIUM 10MG TABLET PO SCH (17:44)
[2019-12-25 20:00] VITALS: BP 111/82
[2019-12-26] VITALS: BP 122/88
[2019-12-26] MEDS: IPRATROPIUM/ALBUTEROL 0.5-3(2.5)MG/3ML NEB HHN SCH ×4 (02:14→20:21)
[2019-12-26] MEDS: HYDROCODONE/ACETAMINOPHEN 5/325MG TABLET PO PRN ×3 (02:34→17:09)
[2019-12-26 06:29] LABS: HEMATOCRIT. 38.1 % (42.0-52.0); HEMOGLOBIN. 12.5 g/dL (14.0-18.0); MEAN CORPUSCULAR HEMOGLOBIN 30.9 pg (28.0-32.0); MEAN CORPUSCULAR VOLUME 94.1 fL (80.0-94.0); MEAN PLATELET VOLUME 8.7 fl (7.4-10.4); PLATELET 205 x1000/uL (130-400); RED BLOOD CELL COUNT 4.05 mill/uL (4.7-6.1); RED CELL DISTRIBUTION WIDTH 13.5 % (11.6-14.6)
[2019-12-26] MEDS: METHYLPREDNISOLONE SOD SUCC 40 MG/ML VIAL IV SCH ×3 (06:43→21:16)
[2019-12-26 07:07] LABS: CHLORIDE 105 mEq/L (98-107)
[2019-12-26] MEDS: LORATADINE 10MG TABLET PO SCH (08:57)
[2019-12-26] MEDS: GUAIFENESIN 200MG/10ML SUGAR FREE UDC PO PRN (08:58)
[2019-12-26 09:25] LABS: PLATELET ESTIMATE NORMAL
[2019-12-26] MEDS: MONTELUKAST SODIUM 10MG TABLET PO SCH (16:16)
[2019-12-26] MEDS: ENOXAPARIN 40MG/0.4ML SYR SUBCUT SCH (16:16)
[2019-12-26 16:22] LABS: BG BASE EXCESS -0.1 mmol/L (-2.0-2.0); BG CARBOXYHEMOGLOBIN 0.3 % (0.5-1.5); BG DEOXYHEMOGLOBIN 4.6 % (0.0-5.0); BG FRACTION INSPIRED OXYGEN 21; BG HCO3 ACT 23.4 mmol/L (22.0-26.0); BG METHEMOGLOBIN 0.2 % (0.0-1.5); BG OXYGEN SATURATION 95.4 % (92.0-98.5); BG OXYHEMOGLOBIN 94.9 % (94.0-97.0); BG PCO2 34.7 mmHg (35.0-45.0); BG PH 7.447 (7.350-7.450); BG PO2 75.4 mmHg (75.0-100.0); BG SAMPLE SITE RIGHT BRACHIAL; BG TOTAL HEMOGLOBIN 13.7 g/dL (12.0-18.0); BG VENT MODE ROOM AIR
[2019-12-26] MEDS: LEVOFLOXACIN 500MG PREMIX 100 ML IV SCH ×2 (17:08→18:00)
[2019-12-26 20:00] VITALS: BP 120/70
[2019-12-26] MEDS ORDERED: HYDROCODONE/ACETAMINOPHEN 5/325MG TABLET PO NR (21:45)
[2019-12-27] VITALS: BP 130/65
[2019-12-27] MEDS: IPRATROPIUM/ALBUTEROL 0.5-3(2.5)MG/3ML NEB HHN SCH ×4 (02:11→22:12)
[2019-12-27] MEDS: HYDROCODONE/ACETAMINOPHEN 5/325MG TABLET PO PRN ×3 (03:57→20:16)
[2019-12-27 04:00] VITALS: BP 118/72
[2019-12-27] MEDS: METHYLPREDNISOLONE SOD SUCC 40 MG/ML VIAL IV SCH ×3 (05:09→21:10)
[2019-12-27 08:00] VITALS: BP 128/74
[2019-12-27] MEDS: LORATADINE 10MG TABLET PO SCH (09:36)
[2019-12-27 12:00] VITALS: BP 122/76
[2019-12-27 16:00] VITALS: BP 147/90
[2019-12-27] MEDS: MONTELUKAST SODIUM 10MG TABLET PO SCH (17:40)
[2019-12-27] MEDS: LEVOFLOXACIN 500MG PREMIX 100 ML IV SCH (17:41)
[2019-12-27] MEDS: ENOXAPARIN 40MG/0.4ML SYR SUBCUT SCH (17:41)
[2019-12-27 20:00] VITALS: BP 134/71
[2019-12-27] MEDS: GUAIFENESIN 200MG/10ML SUGAR FREE UDC PO PRN (21:10)
[2019-12-28] VITALS: BP 137/84
[2019-12-28] MEDS: IPRATROPIUM/ALBUTEROL 0.5-3(2.5)MG/3ML NEB HHN SCH ×4 (03:23→21:23)
[2019-12-28 03:43] VITALS: BP 134/84
[2019-12-28] MEDS: HYDROCODONE/ACETAMINOPHEN 5/325MG TABLET PO PRN ×3 (03:43→17:05)
[2019-12-28] MEDS: METHYLPREDNISOLONE SOD SUCC 40 MG/ML VIAL IV SCH ×3 (05:54→21:43)
[2019-12-28 08:00] VITALS: BP 160/90
[2019-12-28] MEDS: GUAIFENESIN 200MG/10ML SUGAR FREE UDC PO PRN ×2 (08:32→21:43)
[2019-12-28] MEDS: LORATADINE 10MG TABLET PO SCH (08:33)
[2019-12-28] MEDS ORDERED: METOPROLOL TARTRATE 5MG/5ML VIAL IV ONE (10:00)
[2019-12-28 10:25] LABS: BG BASE EXCESS 0.1 mmol/L (-2.0-2.0); BG DEOXYHEMOGLOBIN 5.2 % (0.0-5.0); BG HCO3 ACT 23.1 mmol/L (22.0-26.0); BG METHEMOGLOBIN 0.3 % (0.0-1.5); BG OXYGEN SATURATION 94.8 % (92.0-98.5); BG OXYHEMOGLOBIN 94.5 % (94.0-97.0); BG PCO2 32.9 mmHg (35.0-45.0); BG PH 7.464 (7.350-7.450); BG SAMPLE SITE RIGHT RADIAL; BG TOTAL HEMOGLOBIN 15.1 g/dL (12.0-18.0); BG VENT MODE NASAL CANNULA
[2019-12-28] MEDS ORDERED: ALPRAZOLAM 0.5 MG TABLET PO SCH (12:45)
[2019-12-28 13:00] VITALS: BP 121/57
[2019-12-28] MEDS: ACETAMINOPHEN 325MG TABLET PO PRN (13:06)
[2019-12-28 16:00] VITALS: BP 113/73
[2019-12-28] MEDS: MONTELUKAST SODIUM 10MG TABLET PO SCH (17:04)
[2019-12-28] MEDS: ENOXAPARIN 40MG/0.4ML SYR SUBCUT SCH (17:04)
[2019-12-28] MEDS: LEVOFLOXACIN 500MG PREMIX 100 ML IV SCH (17:05)
[2019-12-28 20:00] VITALS: BP 101/62
[2019-12-29] VITALS: BP 121/74
[2019-12-29] MEDS: IPRATROPIUM/ALBUTEROL 0.5-3(2.5)MG/3ML NEB HHN SCH ×4 (01:38→21:28)
[2019-12-29 04:00] VITALS: BP 125/76
[2019-12-29] MEDS: METHYLPREDNISOLONE SOD SUCC 40 MG/ML VIAL IV SCH ×3 (05:36→21:51)
[2019-12-29] MEDS: GUAIFENESIN 200MG/10ML SUGAR FREE UDC PO PRN ×2 (06:13→17:49)
[2019-12-29 08:00] VITALS: BP 107/54
[2019-12-29] MEDS: LORATADINE 10MG TABLET PO SCH (08:40)
[2019-12-29] MEDS: HYDROCODONE/ACETAMINOPHEN 5/325MG TABLET PO PRN ×2 (08:40→14:23)
[2019-12-29 12:00] VITALS: BP 97/55
[2019-12-29 15:04] LABS: BG BASE EXCESS 1.6 mmol/L (-2.0-2.0); BG FRACTION INSPIRED OXYGEN 21; BG HCO3 ACT 25.7 mmol/L (22.0-26.0); BG METHEMOGLOBIN 0.1 % (0.0-1.5); BG OXYHEMOGLOBIN 94.9 % (94.0-97.0); BG PCO2 38.6 mmHg (35.0-45.0); BG PH 7.441 (7.350-7.450); BG PO2 72.6 mmHg (75.0-100.0); BG SAMPLE SITE RIGHT BRACHIAL; BG VENT MODE ROOM AIR
[2019-12-29 16:00] VITALS: BP 106/65
[2019-12-29] MEDS: MONTELUKAST SODIUM 10MG TABLET PO SCH (17:09)
[2019-12-29] MEDS: ENOXAPARIN 40MG/0.4ML SYR SUBCUT SCH (17:40)
[2019-12-29] MEDS: LEVOFLOXACIN 500MG PREMIX 100 ML IV SCH (17:41)
[2019-12-29] MEDS: ACETAMINOPHEN 325MG TABLET PO PRN (17:50)
[2019-12-29 20:00] VITALS: BP 109/69
[2019-12-30] VITALS: BP 104/62
[2019-12-30] MEDS: IPRATROPIUM/ALBUTEROL 0.5-3(2.5)MG/3ML NEB HHN SCH ×4 (02:04→20:17)
[2019-12-30 04:00] VITALS: BP 119/75
[2019-12-30] MEDS: METHYLPREDNISOLONE SOD SUCC 40 MG/ML VIAL IV SCH ×3 (06:18→23:28)
[2019-12-30 08:00] VITALS: BP 115/65
[2019-12-30] MEDS: LORATADINE 10MG TABLET PO SCH (08:34)
[2019-12-30] MEDS: IPRATROPIUM/ALBUTEROL 0.5-3(2.5)MG/3ML NEB HHN PRN ×2 (10:46→16:35)
[2019-12-30 12:00] VITALS: BP 101/66
[2019-12-30 16:00] VITALS: BP 107/67
[2019-12-30] MEDS: MONTELUKAST SODIUM 10MG TABLET PO SCH (17:25)
[2019-12-30] MEDS: LEVOFLOXACIN 500MG PREMIX 100 ML IV SCH (17:25)
[2019-12-30] MEDS: ENOXAPARIN 40MG/0.4ML SYR SUBCUT SCH (17:28)
[2019-12-30 20:00] VITALS: BP 106/66
[2019-12-31] VITALS (7 sets, daily range): BP systolic 107–138; BP diastolic 57–82
[2019-12-31] MEDS: GUAIFENESIN 200MG/10ML SUGAR FREE UDC PO PRN (01:32)
[2019-12-31] MEDS: IPRATROPIUM/ALBUTEROL 0.5-3(2.5)MG/3ML NEB HHN SCH ×4 (01:43→20:42)
[2019-12-31] MEDS: METHYLPREDNISOLONE SOD SUCC 40 MG/ML VIAL IV SCH ×3 (06:09→21:13)
[2019-12-31] MEDS: LORATADINE 10MG TABLET PO SCH (08:38)
[2019-12-31] MEDS: MONTELUKAST SODIUM 10MG TABLET PO SCH (17:04)
[2019-12-31] MEDS: LEVOFLOXACIN 500MG PREMIX 100 ML IV SCH (17:04)
[2019-12-31] MEDS: ENOXAPARIN 40MG/0.4ML SYR SUBCUT SCH (17:04)
[2019-12-31] MEDS: HYDROCODONE/ACETAMINOPHEN 5/325MG TABLET PO PRN (17:18)
[2020-01-01] VITALS (7 sets, daily range): BP systolic 99–146; BP diastolic 71–88
[2020-01-01] MEDS: IPRATROPIUM/ALBUTEROL 0.5-3(2.5)MG/3ML NEB HHN SCH ×3 (00:58→12:00)
[2020-01-01] MEDS: HYDROCODONE/ACETAMINOPHEN 5/325MG TABLET PO PRN ×3 (04:32→17:41)
[2020-01-01] MEDS: METHYLPREDNISOLONE SOD SUCC 40 MG/ML VIAL IV SCH ×2 (06:00→14:43)
[2020-01-01] MEDS: LORATADINE 10MG TABLET PO SCH (09:15)
[2020-01-01] MEDS: IPRATROPIUM/ALBUTEROL 0.5-3(2.5)MG/3ML NEB HHN PRN (16:50)
[2020-01-01] MEDS: MONTELUKAST SODIUM 10MG TABLET PO SCH (17:41)
[2020-01-01] MEDS: ENOXAPARIN 40MG/0.4ML SYR SUBCUT SCH (17:41)
[2020-01-01] MEDS: LEVOFLOXACIN 500MG PREMIX 100 ML IV SCH (17:41)
[2020-01-02] MEDS ORDERED: PREDNISONE 20MG TABLET PO SCH (09:00)
[2020-01-02] MEDS ORDERED: LEVOFLOXACIN 500MG TABLET PO SCH (11:00)
== END 2020-01-01 19:50 | DRG 190 ==
LOC: ER 00:52 → EDBEDREQ 03:27 → EDBEDREQTM 03:27 → 5WST 03:36 → EDBEDREQ 03:37 → EDBEDREQTM 03:37 → ENRESERV 08:32
PROVIDERS: ADMIT Internal Medicine; ATTEND Internal Medicine
PROC: 5A09357 Assistance with Respiratory Ventilation, Less than 24 Consecutive Hours, Continuous Positive Airway Pressure (ICD-10-PCS; principal; 2019-12-24)
PROC: 5A09357 Assistance with Respiratory Ventilation, Less than 24 Consecutive Hours, Continuous Positive Airway Pressure (ICD-10-PCS; 2019-12-30)
DX: J44.1 Chronic obstructive pulmonary disease with (acute) exacerbation (principal); J96.20 Acute and chronic respiratory failure, unspecified whether with hypoxia or hypercapnia; D64.9 Anemia, unspecified; I10 Essential (primary) hypertension; D72.829 Elevated white blood cell count, unspecified; J45.909 Unspecified asthma, uncomplicated; Z87.891 Personal history of nicotine dependence; Z99.81 Dependence on supplemental oxygen; Z93.0 Tracheostomy status; Z79.899 Other long term (current) drug therapy
CPT/HCPCS: 36415; 36600; 71045; 80048; 80053; 80305; 81003; 82375; 82805; 83880; 84484; 85025; 87804; 93005; 94640; 94644; 94660; 97116; 97162; 97530; 97535; 99285; J0360; J1650; J1956; J2920; J2930; J3475; J3490; J7626

== ENCOUNTER 2020-02-28 11:23 | Emergency (ER) | payer MEDICARE, MEDICAID ==
[~2020-02-28] VITALS: Ht 162.6 cm; Wt 60.0 kg
[2020-02-28 12:03] LABS: BG BASE EXCESS 5.6 mmol/L (-2.0-2.0); BG CARBOXYHEMOGLOBIN 0.3 % (0.5-1.5); BG DEOXYHEMOGLOBIN 2.2 % (0.0-5.0); BG FRACTION INSPIRED OXYGEN 32; BG HCO3 ACT 31.1 mmol/L (22.0-26.0); BG METHEMOGLOBIN 0.3 % (0.0-1.5); BG OXYGEN SATURATION 97.8 % (92.0-98.5); BG OXYHEMOGLOBIN 97.2 % (94.0-97.0); BG PCO2 49.3 mmHg (35.0-45.0); BG PH 7.418 (7.350-7.450); BG PO2 103.3 mmHg (75.0-100.0); BG SAMPLE SITE RIGHT BRACHIAL; BG TOTAL HEMOGLOBIN 12.3 g/dL (12.0-18.0); BG VENT MODE NASAL CANNULA
[2020-02-28 12:13] LABS: BASOPHILS % 0.6 % (0.0-2.0); EOSINOPHILS % 0.8 % (0.0-5.0); HEMATOCRIT. 35.8 % (42.0-52.0); HEMOGLOBIN. 11.8 g/dL (14.0-18.0); LYMPHOCYTES % 16.7 % (20.0-50.0); MEAN CORPUSCULAR HEMOGLOBIN 30.5 pg (28.0-32.0); MEAN CORPUSCULAR VOLUME 92.4 fL (80.0-94.0); MEAN PLATELET VOLUME 7.2 fl (7.4-10.4); MONOCYTES % 8.1 % (2.0-8.0); NEUTROPHILS % 73.8 % (40.0-76.0); PLATELET 300 x1000/uL (130-400); RED BLOOD CELL COUNT 3.88 mill/uL (4.7-6.1)
[2020-02-28 12:23] LABS: CHLORIDE 106 mEq/L (98-107)
[2020-02-28] MEDS ORDERED: ALBUTEROL (0.083%) 2.5MG/3ML NEB HHN STA (12:29)
[2020-02-28] MEDS ORDERED: IPRATROPIUM BROMIDE (0.02%) 0.5MG/2.5ML NEB HHN STA (12:29)
[2020-02-28] MEDS ORDERED: METHYLPREDNISOLONE SOD SUCC 125 MG/2 ML VIAL IV STA (12:29)
[2020-02-28 17:58] VITALS: BP 145/89
== END 2020-02-28 18:47 ==
LOC: ER 11:33
DX: J44.1 Chronic obstructive pulmonary disease with (acute) exacerbation (principal); Z99.81 Dependence on supplemental oxygen
CPT/HCPCS: 36415; 36600; 71045; 80053; 82375; 82805; 83880; 84484; 85025; 93005; 94644; 96374; 99285; J2930